=== PATIENT | female | born 2000 | race Caucasian/White ===

== ENCOUNTER 2019-01-01 14:32 | Inpatient (IN) ==
[2019-01-01] MEDS ORDERED: KETOROLAC TROMETHAMINE 15 MG/ML VIAL IV STA (15:50)
[2019-01-01] MEDS ORDERED: SODIUM CHLORIDE 0.9% 1000ML 1,000 ML IV ONE (15:50)
[2019-01-01] MEDS ORDERED: ONDANSETRON INJ 2 MG/ML 2 ML VIAL IV STA (15:50)
[2019-01-01 16:21] LABS: Appearance Urine Clear (Clear); Bacteria Urine Automated 2+ (Negative); Bilirubin Urine Negative (Negative); Blood Urine Negative (Negative); Color Urine Dark Yellow; Epithelial Cell Urine Auto >30 /lpf (0-5); Glucose Urine UA Negative (Negative); Ketones Urine 1+ (Negative); Leukocyte Esterase Urine Negative (Negative); Nitrite Urine Positive (Negative); Protein Urine Negative (Negative); RBC Urine Automated 0-4 /hpf (0-4); Specific Gravity Urine 1.035 (1.000-1.030); Urobilinogen Urine Negative (Negative)
[2019-01-01 16:28] LABS: BUN Creatinine Ratio 15.6 (10-20); Calcium 9.7 mg/dl (8.5-10.1); Creatinine Clr Calc Pharmacy 107.2 ml/min; Est GFR (African American) 130.9; Est GFR (Non-African American) 112.9; Potassium 3.6 mmol/L (3.5-5.1)
[2019-01-01 16:30] LABS: Basophils # (auto) 0.02 K/uL (0-0.2); Basophils % (auto) 0.2 %; Eosinophils # (auto) 0.26 K/uL (0-0.5); Eosinophils % (auto) 2.7 %; Hemoglobin 13.3 g/dL (12.0-16.0); Immature Granulocytes # (auto) 0.02 K/uL (0.00-0.02); Immature Granulocytes % (auto) 0.2 %; Lymphocytes # (auto) 1.51 K/uL (1.2-3.4); Lymphocytes % (auto) 15.8 %; Mean Corpuscular Hemoglobin 28.8 pg (25-34); Mean Corpuscular Hgb Conc 33.3 g/dL (32-36); Mean Corpuscular Volume 86.6 fL (80-100); Mean Platelet Volume 10.8 fL (7.4-10.4); Monocytes # (auto) 0.37 K/uL (0.11-0.59); Monocytes % (auto) 3.9 %; Neutrophils # (auto) 7.38 K/uL (1.4-6.5); Neutrophils % (auto) 77.2 %; Platelet Count 256 K/uL (130-400); RDW Coefficient of Variation 14.4 % (11.5-14.5); RDW Standard Deviation 45.1 fL (36.4-46.3); Red Blood Count 4.62 M/uL (4.2-5.4); White Blood Count 9.56 K/uL (4.8-10.8)
--- NOTE | 2019-01-01 16:30 | XRay Report ---
KUB HISTORY: lower abdominal pain COMPARISON: None. FINDINGS: Distended gas-filled colon to the level of the distal sigmoid colon which appears decompres sed. There is a small amount of gas within the rectum. The transverse colon measures up to 8.7 cm in diameter. No renal calculi. No ureteral calculi. No pneumoperitoneum or pneumatosis. IMPRESSION: Above findings concerning for a distal large bowel obstruction. A dedicated abdomen and pelvis CT is recommended for further evaluation. Electronically signed by: Tj Elise M.D. 01/01/2019 4:29 PM
[2019-01-01 16:31] LABS: Bilirubin,Total 0.8 mg/dl (0.2-1); Globulin 3.9 gm/dl (2.5-4.0); Total Protein 7.9 gm/dl (6.4-8.2)
[2019-01-01] MEDS ORDERED: IOVERSOL 100ml IV PRN (17:06)
--- NOTE | 2019-01-01 17:45 | CT Scan Report ---
ABDOMEN AND PELVIS CT WITH IV CONTRAST CT DOSE: 328.74 mGy.cm HISTORY: lower abd pain, large bowel obstruction on xray TECHNIQUE: Multiaxial CT images of the abdomen and pelvis were performed following the use of intrave nous contrast. A dose lowering technique was utilized adhering to the principles of ALARA. COMPARISON STUDY: KUB 01/01/2019. FINDINGS: Trace bilateral pleural effusions. No pneumoperitoneum. No pneumatosis. The liver, gallblad robin, spleen, adrenal glands, pancreas, and kidneys are unremarkable. No retroperitoneal lymphadenopat hy. Punctate focus of gas within the bladder may be due to recent catheterization. The bladder is dec ompressed. The uterus and bilateral adnexa are within normal limits. Normal appendix. Focal high-grad e stenosis at the splenic flexure of the colon within the left side the abdomen best seen on image 14 3. This appears to be secondary to an internal hernia. The distal colon from the hernia site is decom pressed. The colon proximal to the hernia site is distended and filled with fluid and gas measuring u p to 7.6 cm in diameter. Therefore, this is consistent with a large bowel obstruction. A small bowel is also decompressed. IMPRESSION: 1. There is an internal hernia within the left side the abdomen resulting in the transition point for the high-grade large bowel obstruction at the level of the splenic flexure of the colon. Immediate s urgical consultation recommended. 2. Trace bilateral pleural effusions. 3. Punctate focus of gas within the bladder suggesting recent catheterization. Electronically signed by: Tj Elise M.D. 01/01/2019 5:44 PM
--- NOTE | 2019-01-01 18:51 | Emergency Department Note ---
History of Present Illness General Chief complaint: Abdominal Pain Stated complaint: VOMITING,ABD PAIN Source: patient Mode of arrival: ambulatory Limitations: no limitations History of Present Illness Maximum Pain Intensity: 8 This patient is a 18-year-old female who presents to the emergency department accompanied by her grandmother for evaluation of abdominal pain. Patient reports that for the past 3 days, she has had intermittent lower abdominal pain. She states that the pain is in the middle of the lower abdomen and comes and goes. She states it has been worse with stress. She states that nothing has made the pain better. She has not taken any medication for her symptoms. She rates her overall discomfort a 6/10. She has had multiple episodes of vomiting which began yesterday morning. She has not been able to eat anything, but has been keeping liquids down. She denies any history of prior abdominal surgeries. She denies any urinary symptoms, changes in bowel movements or fevers. Her last menstrual period was 2 weeks ago. She is sexually active and denies any abnormal vaginal discharge or concern for STI. She has had some abdominal pain in the past, but states nothing that feels as severe as this. Home Medications Home Medications Medication Instructions Recorded Confirmed Type No Known Home Medications 10/18/18 01/01/19 History Allergies Allergy/AdvReac Type Severity Reaction Status Date / Time No Known Allergies Allergy Verified 01/01/19 20:42 Past Med/Surg History Medical History No significant past medical history Surgical History No significant past surgical history Social History Preferred Language: Georgian Communication Ability: Effective [employer] Supervisor Required: No Beliefs That Will Affect Care: None Current Living Situation: Family Current Living Situation Comment: Grandmother current occupational status: employed current occupation: works at [employer] Feels Safe at Home: Yes Safety Concerns: Feels Safe At This Time Smoking Status: Current some day smoker Tobacco Type: cigarettes ; Hx Alcohol Use: No Hx Substance Use: Yes substance use type: marijuana Review of Systems A total of 10 systems reviewed and were otherwise negative Physical Exam Vital Signs Vital Signs - 24 hr 01/01/19 14:51 01/01/19 16:32 01/01/19 18:00 Temperature 36.4 C L Temperature Source Oral Sepsis Recent Fever Within 48 Hours No Sepsis New/Unexplained Change in Mental Status No Sepsis Action Taken by Nursing No Action Required Pulse Rate 94 H Pulse Rate [Left Apical] 82 Pulse Rate [Right Finger] 88 Pulse Rhythm [Left Apical] Regular Pulse Rhythm [Right Finger] Regular Pulse Strength [Left Apical] Normal Pulse Strength [Right Finger] Normal Respiratory Rate 20 16 18 Respiratory Effort / Characteristics Non-Labored Spontaneous Non-Labored Spontaneous Respiratory Depth Normal Normal Respiratory Pattern Regular Regular Blood Pressure 107/68 Blood Pressure [Left Arm] 98/55 L 117/68 Blood Pressure Mean 81 Blood Pressure Mean [Left Arm] 69 84 Blood Pressure Position Sitting Blood Pressure Position [Left Arm] Lying Sitting Pulse Oximetry 98 98 100 Oxygen Delivery Method Room Air Room Air Room Air 01/01/19 20:30 Temperature Temperature Source Sepsis Recent Fever Within 48 Hours Sepsis New/Unexplained Change in Mental Status Sepsis Action Taken by Nursing Pulse Rate 78 Pulse Rate [Left Apical] Pulse Rate [Right Finger] Pulse Rhythm [Left Apical] Pulse Rhythm [Right Finger] Pulse Strength [Left Apical] Pulse Strength [Right Finger] Respiratory Rate 18 Respiratory Effort / Characteristics Respiratory Depth Respiratory Pattern Blood Pressure 100/63 Blood Pressure [Left Arm] Blood Pressure Mean Blood Pressure Mean [Left Arm] Blood Pressure Position Blood Pressure Position [Left Arm] Pulse Oximetry 99 Oxygen Delivery Method Room Air VITALS: Vitals are noted on the nurse's note and reviewed by myself. Vital signs stable. GENERAL: This is a 18-year-old female, in no acute distress, nondiaphoretic, well-developed well-nourished. SKIN: The skin was without rashes. EARS: External auditory canals clear, tympanic membranes pearly lin without erythema or effusion bilaterally. EYES: Pupils equal round and reactive to light and accommodation. MOUTH: Mucous membranes moist. Tonsils are not enlarged. Pharynx without erythema or exudate. NECK: Supple without nuchal rigidity. No lymphadenopathy. HEART: Regular rate and rhythm without murmurs gallops or rubs. LUNGS: Clear to auscultation bilaterally without wheezes, rales or rhonchi. ABDOMEN: Positive bowel sounds x 4. Soft, nondistended and nontender to palpation. EXTREMITIES: No peripheral edema. NEURO: Patient was alert and oriented to person place and time. Course Reevaluation(s) Reevaluation #1: Patient was reevaluated and CT findings discussed. Repeat abdominal exam was performed at this time. Patient has no tenderness at this time. Consultations Consultation #1: Dr. Trammell - general surgery Dr. Trammell will evaluate the patient for further treatment. Administered Medications Sodium Chloride (Nss 1000ml) 1,000 mls @ 150 mls/hr IV .Q6H40M DENICE Stop: 01/31/19 21:29 Last Admin: 01/01/19 21:42 Dose: 150 mls/hr Documented by: [id number] Ioversol (Optiray 320 100ml) 93 ml IV ONCE PRN PRN Reason: Interaction Checking Stop: 01/05/19 17:05 Last Admin: 01/01/19 17:06 Dose: 93 ml Documented by: [id number] Discontinued Medications Sodium Chloride (Nss 1000ml) 1,000 mls @ 999 mls/hr IV .Q1H1M ONE Stop: 01/01/19 16:50 Last Infusion: 01/01/19 17:09 Dose: 0 mls/hr Documented by: [id number] Admin: 01/01/19 16:09 Dose: 999 mls/hr Documented by: [id number] Ketorolac Tromethamine (Toradol) 15 mg IV NOW STA Stop: 01/01/19 15:51 Last Admin: 01/01/19 16:08 Dose: 15 mg Documented by: [id number] Ondansetron HCl (Zofran) 4 mg IV NOW STA Stop: 01/01/19 15:51 Last Admin: 01/01/19 16:08 Dose: 4 mg Documented by: [id number] Medical Decision Making Differential Diagnosis Differential diagnosis includes appendicitis, diverticulitis, bowel obstruction, inflammatory bowel disease, renal colic, mesenteric ischemia, aortic pathology, infection, genitourinary, UTI, perforated viscus, ovarian cyst, ovarian torsion, PID, among others. Home Medications Current Medication List: was personally reviewed by me Laboratory Data Attestation: I reviewed the patient's lab results. Result diagrams: 01/01/19 15:50 01/01/19 15:50 Lab Results 01/01/19 01/01/19 01/01/19 Range/Units 15:50 15:50 15:50 WBC 9.56 (4.8-10.8) K/uL RBC 4.62 (4.2-5.4) M/uL Hgb 13.3 (12.0-16.0) g/dL Hct 40.0 (37-47) % MCV 86.6 (80-100) fL MCH 28.8 (25-34) pg MCHC 33.3 (32-36) g/dL RDW Std Deviation 45.1 (36.4-46.3) fL RDW Coeff of Maxi 14.4 (11.5-14.5) % Plt Count 256 (130-400) K/uL MPV 10.8 H (7.4-10.4) fL Immature Gran % (Auto) 0.2 % Neut % (Auto) 77.2 % Lymph % (Auto) 15.8 % [place] % (Auto) 3.9 % Eos % (Auto) 2.7 % Baso % (Auto) 0.2 % Immature Gran # (Auto) 0.02 (0.00-0.02) K/uL Neut # (Auto) 7.38 H (1.4-6.5) K/uL Lymph # (Auto) 1.51 (1.2-3.4) K/uL [place] # (Auto) 0.37 (0.11-0.59) K/uL Eos # (Auto) 0.26 (0-0.5) K/uL Baso # (Auto) 0.02 (0-0.2) K/uL Sodium 140 (136-145) mmol/L Potassium 3.6 (3.5-5.1) mmol/L Chloride 107 (98-107) mmol/L Carbon Dioxide 22 (21-32) mmol/L Anion Gap 11.0 (3-11) BUN 12 (7-18) mg/dl Creatinine 0.76 (0.6-1.2) mg/dl Est Cr Clr Drug Dosing 107.2 ml/min Est GFR ( Amer) 130.9 Est GFR (Non-Af Amer) 112.9 BUN/Creatinine Ratio 15.6 (10-20) Glucose 88 (70-99) mg/dl Calcium 9.7 (8.5-10.1) mg/dl Total Bilirubin 0.8 (0.2-1) mg/dl AST 17 (15-37) U/L ALT 20 (12-78) U/L Alkaline Phosphatase 105 (45-117) U/L Total Protein 7.9 (6.4-8.2) gm/dl Albumin 4.0 (3.4-5.0) gm/dl Globulin 3.9 (2.5-4.0) gm/dl Albumin/Globulin Ratio 1.0 (0.9-2) Lipase 46 L Cancelled (73-393) U/L Urine Color Urine Appearance (Clear) Urine pH (4.5-7.5) Ur Specific [place] (1.000-1.030) Urine Protein (Negative) Urine Glucose (UA) (Negative) Urine Ketones (Negative) Urine Blood (Negative) Urine Nitrite (Negative) Urine Bilirubin (Negative) Urine Urobilinogen (Negative) Ur Leukocyte Esterase (Negative) Urine WBC (Auto) (0-5) /hpf Urine RBC (Auto) (0-4) /hpf U Hyaline Cast (Auto) (0-5) /lpf U Epithel Cells (Auto) (0-5) /lpf Urine Bacteria (Auto) (Negative) POC Ur Test (NEG) 01/01/19 01/01/19 Range/Units 16:05 16:05 WBC (4.8-10.8) K/uL RBC (4.2-5.4) M/uL Hgb (12.0-16.0) g/dL Hct (37-47) % MCV (80-100) fL MCH (25-34) pg MCHC (32-36) g/dL RDW Std Deviation (36.4-46.3) fL RDW Coeff of Maxi (11.5-14.5) % Plt Count (130-400) K/uL MPV (7.4-10.4) fL Immature Gran % (Auto) % Neut % (Auto) % Lymph % (Auto) % [place] % (Auto) % Eos % (Auto) % Baso % (Auto) % Immature Gran # (Auto) (0.00-0.02) K/uL Neut # (Auto) (1.4-6.5) K/uL Lymph # (Auto) (1.2-3.4) K/uL [place] # (Auto) (0.11-0.59) K/uL Eos # (Auto) (0-0.5) K/uL Baso # (Auto) (0-0.2) K/uL Sodium (136-145) mmol/L Potassium (3.5-5.1) mmol/L Chloride (98-107) mmol/L Carbon Dioxide (21-32) mmol/L Anion Gap (3-11) BUN (7-18) mg/dl Creatinine (0.6-1.2) mg/dl Est Cr Clr Drug Dosing ml/min Est GFR ( Amer) Est GFR (Non-Af Amer) BUN/Creatinine Ratio (10-20) Glucose (70-99) mg/dl Calcium (8.5-10.1) mg/dl Total Bilirubin (0.2-1) mg/dl AST (15-37) U/L ALT (12-78) U/L Alkaline Phosphatase (45-117) U/L Total Protein (6.4-8.2) gm/dl Albumin (3.4-5.0) gm/dl Globulin (2.5-4.0) gm/dl Albumin/Globulin Ratio (0.9-2) Lipase (73-393) U/L Urine Color Dark Yellow Urine Appearance Clear (Clear) Urine pH 5.0 (4.5-7.5) Ur Specific [place] 1.035 H (1.000-1.030) Urine Protein Negative (Negative) Urine Glucose (UA) Negative (Negative) Urine Ketones 1+ H (Negative) Urine Blood Negative (Negative) Urine Nitrite Positive A (Negative) Urine Bilirubin Negative (Negative) Urine Urobilinogen Negative (Negative) Ur Leukocyte Esterase Negative (Negative) Urine WBC (Auto) 1-5 (0-5) /hpf Urine RBC (Auto) 0-4 (0-4) /hpf U Hyaline Cast (Auto) 1-5 (0-5) /lpf U Epithel Cells (Auto) >30 H (0-5) /lpf Urine Bacteria (Auto) 2+ H (Negative) POC Ur Test NEG (NEG) Imaging Data Attestation: I personally reviewed and interpreted this imaging study as follows: Radiologist's Impression: KUB FINDINGS: Distended gas-filled colon to the level of the distal sigmoid colon which appears decompressed. There is a small amount of gas within the rectum. The transverse colon measures up to 8.7 cm in diameter. No renal calculi. No ureteral calculi. No pneumoperitoneum or pneumatosis. IMPRESSION: Above findings concerning for a distal large bowel obstruction. A dedicated abdomen and pelvis CT is recommended for further evaluation. ABDOMEN AND PELVIS CT WITH IV CONTRAST FINDINGS: Trace bilateral pleural effusions. No pneumoperitoneum. No pneumatosis. The liver, gallbladder, spleen, adrenal glands, pancreas, and kidneys are unremarkable. No retroperitoneal lymphadenopathy. Punctate focus of gas within the bladder may be due to recent catheterization. The bladder is decompressed. The uterus and bilateral adnexa are within normal limits. Normal appendix. Focal high-grade stenosis at the splenic flexure of the colon within the left side the abdomen best seen on image 143. This appears to be secondary to an internal hernia. The distal colon from the hernia site is decompressed. The colon proximal to the hernia site is distended and filled with fluid and gas measuring up to 7.6 cm in diameter. Therefore, this is consistent with a large bowel obstruction. A small bowel is also decompressed. IMPRESSION: 1. There is an internal hernia within the left side the abdomen resulting in the transition point for the high-grade large bowel obstruction at the level of the splenic flexure of the colon. Immediate surgical consultation recommended. 2. Trace bilateral pleural effusions. 3. Punctate focus of gas within the bladder suggesting recent catheterization. Blood Pressure Blood Pressure Findings: Normal blood pressure Blood Pressure Disposition: did not require urgent referral MDM Narrative The patient is a 18-year-old female who presents today complaining of abdominal pain and vomiting for the past 2 to 3 days. Labs revealed no leukocytosis, anemia or concerning electrolyte abnormalities. Urinalysis suggestive of possible infection, will be sent for culture. Urine test was negative. Patient has no tenderness on exam and does not appear to be significantly uncomfortable. For this reason, I initially performed a KUB which showed significant dilation of the colon. CT of the abdomen and pelvis was then performed which shows evidence of an internal hernia with resultant high-grade large bowel obstruction. Again, patient has minimal symptoms in the emergency department and no tenderness on exam. I did speak with the general surgeon, who evaluated the patient and will admit her for further evaluation and care. Patient was agreeable with this plan of care as well. Impression & Plan Large bowel obstruction, Internal hernia, Vomiting, Suprapubic abdominal pain Discharge Plan Visit Data *Final* Discharge Date/Time: 01/01/19 20:30 Chief Complaint: Abdominal Pain Stated Complaint: VOMITING,ABD PAIN ED Provider: Yifan Vasquez ED Midlevel Provider: Krystal Goetz Discharge Problem: Large bowel obstruction, Internal hernia, Vomiting, Suprapubic abdominal pain Patient Disposition: Admitted As Inpatient Discharge Instructions Interventions: ED Discharge Assessment Last Done: 01/01/19 20:30 Discharge Problem: Vomiting Qualifiers: Vomiting type: unspecified Vomiting Intractability: non-intractable Nausea presence: with nausea Qualified Code(s): R11.2 - Nausea with vomiting, unspecified
--- NOTE | 2019-01-01 20:53 | History & Physical Report ---
Date of Service January 01, 2019 Assessment & Plan (1) Abdominal pain: This patient had abdominal pain with nausea. That seemed to resolve however she has a finding on CAT scan of a possible internal hernia with proximally dilated colon and distally decompressed colon with the transition poi nt near the splenic flexure with evidence of an internal hernia. However at the present time she is completely asymptomatic. The etiology of this is unclear. She is never had previous surgery. She has no symptoms that would suggest neoplasm. I discussed this with radiology and were going to plan for a contrast enema tomorrow. I would prefer using Gastrografin considering her history of constipation. We will await that result. We will keep her n.p.o. She will be placed on IV fluids and will be given analgesics and antiemetics as needed. History of Present Illness Chief Complaint: Abdominal pain nausea and vomiting Primary Care Provider: Deb Dolan MD This is a 18-year-old female presented to the emergency room with a complaint of abdominal pain that was centered mostly in the suprapubic area. The pain was crampy in nature. There were some sharp component. She had some nausea and had a few episodes of vomiting as well. She had not been able to eat much over the last 2 days. Since coming to the emergency room she was given some analgesic and anti-emetics and her pain and nausea and vomiting have resolved. She has not had any fever or chills. Her bowels she stated had been moving although a relative accompanied her and said that she for many years has had constipation. She has not had any melena or hematochezia. She has been passing flatus. She has no dysuria or hematuria. She had discomfort in the right side back in September. She was evaluated and underwent an ultrasound that demonstrated no evidence of acute appendicitis. Her discomfort resolved after about 3 to 4 days and did not return until today. Allergies Allergy/AdvReac Type Severity Reaction Status Date / Time No Known Allergies Allergy Verified 01/01/19 20:42 Home Medications Home Medications Medication Instructions Recorded Confirmed Type No Known Home Medications 10/18/18 01/01/19 History Past Med/Surg History Medical History No significant past medical history Surgical History No significant past surgical history Social History Current Living Situation: Family Current Living Situation Comment: lives with grandmother current occupational status: employed current occupation: works at [employer] Feels Safe at Home: Yes Smoking Status: Never smoker Review of Systems Review of Systems: All systems reviewed & are unremarkable except as noted in HPI & below Physical Exam Constitutional: no acute distress Neck: trachea midline Respiratory: normal respiratory effort, lungs clear to auscultation Cardiovascular: Rate/Rhythm: regular rate and regular rhythm Gastrointestinal (Abdomen): Inspection/Auscultation: normal bowel sounds; abdomen not distended Percussion/Palpation: abdomen soft; abdomen nontender Skin: no rashes, warm and dry Lymphatic: no cervical lymphadenopathy Results & Data Vital Signs (Past 12 Hours) Vital Signs Temp Pulse Pulse Pulse Resp BP BP 01/01/19 20:30 78 18 100/63 01/01/19 18:00 82 18 117/68 01/01/19 16:32 88 16 98/55 L 01/01/19 14:51 36.4 C L 94 H 20 107/68 Pulse Ox 01/01/19 20:30 99 01/01/19 18:00 100 01/01/19 16:32 98 01/01/19 14:51 98 Laboratory Results 01/01/19 01/01/19 01/01/19 Range/Units 16:05 16:05 15:50 WBC (4.8-10.8) K/uL RBC (4.2-5.4) M/uL Hgb (12.0-16.0) g/dL Hct (37-47) % MCV (80-100) fL MCH (25-34) pg MCHC (32-36) g/dL RDW Std Deviation (36.4-46.3) fL RDW Coeff of Maxi (11.5-14.5) % Plt Count (130-400) K/uL MPV (7.4-10.4) fL Immature Gran % (Auto) % Neut % (Auto) % Lymph % (Auto) % [place] % (Auto) % Eos % (Auto) % Baso % (Auto) % Immature Gran # (Auto) (0.00-0.02) K/uL Neut # (Auto) (1.4-6.5) K/uL Lymph # (Auto) (1.2-3.4) K/uL [place] # (Auto) (0.11-0.59) K/uL Eos # (Auto) (0-0.5) K/uL Baso # (Auto) (0-0.2) K/uL Sodium (136-145) mmol/L Potassium (3.5-5.1) mmol/L Chloride (98-107) mmol/L Carbon Dioxide (21-32) mmol/L Anion Gap (3-11) BUN (7-18) mg/dl Creatinine (0.6-1.2) mg/dl Est Cr Clr Drug Dosing ml/min Est GFR ( Amer) Est GFR (Non-Af Amer) BUN/Creatinine Ratio (10-20) Glucose (70-99) mg/dl Calcium (8.5-10.1) mg/dl Total Bilirubin (0.2-1) mg/dl AST (15-37) U/L ALT (12-78) U/L Alkaline Phosphatase (45-117) U/L Total Protein (6.4-8.2) gm/dl Albumin (3.4-5.0) gm/dl Globulin (2.5-4.0) gm/dl Albumin/Globulin Ratio (0.9-2) Lipase Cancelled (73-393) U/L Urine Color Dark Yellow Urine Appearance Clear (Clear) Urine pH 5.0 (4.5-7.5) Ur Specific [place] 1.035 H (1.000-1.030) Urine Protein Negative (Negative) Urine Glucose (UA) Negative (Negative) Urine Ketones 1+ H (Negative) Urine Blood Negative (Negative) Urine Nitrite Positive A (Negative) Urine Bilirubin Negative (Negative) Urine Urobilinogen Negative (Negative) Ur Leukocyte Esterase Negative (Negative) Urine WBC (Auto) 1-5 (0-5) /hpf Urine RBC (Auto) 0-4 (0-4) /hpf U Hyaline Cast (Auto) 1-5 (0-5) /lpf U Epithel Cells (Auto) >30 H (0-5) /lpf Urine Bacteria (Auto) 2+ H (Negative) POC Ur Test NEG (NEG) 10/07/19 10/07/19 Range/Units 15:50 15:50 WBC 9.56 (4.8-10.8) K/uL RBC 4.62 (4.2-5.4) M/uL Hgb 13.3 (12.0-16.0) g/dL Hct 40.0 (37-47) % MCV 86.6 (80-100) fL MCH 28.8 (25-34) pg MCHC 33.3 (32-36) g/dL RDW Std Deviation 45.1 (36.4-46.3) fL RDW Coeff of Maxi 14.4 (11.5-14.5) % Plt Count 256 (130-400) K/uL MPV 10.8 H (7.4-10.4) fL Immature Gran % (Auto) 0.2 % Neut % (Auto) 77.2 % Lymph % (Auto) 15.8 % [place] % (Auto) 3.9 % Eos % (Auto) 2.7 % Baso % (Auto) 0.2 % Immature Gran # (Auto) 0.02 (0.00-0.02) K/uL Neut # (Auto) 7.38 H (1.4-6.5) K/uL Lymph # (Auto) 1.51 (1.2-3.4) K/uL [place] # (Auto) 0.37 (0.11-0.59) K/uL Eos # (Auto) 0.26 (0-0.5) K/uL Baso # (Auto) 0.02 (0-0.2) K/uL Sodium 140 (136-145) mmol/L Potassium 3.6 (3.5-5.1) mmol/L Chloride 107 (98-107) mmol/L Carbon Dioxide 22 (21-32) mmol/L Anion Gap 11.0 (3-11) BUN 12 (7-18) mg/dl Creatinine 0.76 (0.6-1.2) mg/dl Est Cr Clr Drug Dosing 107.2 ml/min Est GFR ( Amer) 130.9 Est GFR (Non-Af Amer) 112.9 BUN/Creatinine Ratio 15.6 (10-20) Glucose 88 (70-99) mg/dl Calcium 9.7 (8.5-10.1) mg/dl Total Bilirubin 0.8 (0.2-1) mg/dl AST 17 (15-37) U/L ALT 20 (12-78) U/L Alkaline Phosphatase 105 (45-117) U/L Total Protein 7.9 (6.4-8.2) gm/dl Albumin 4.0 (3.4-5.0) gm/dl Globulin 3.9 (2.5-4.0) gm/dl Albumin/Globulin Ratio 1.0 (0.9-2) Lipase 46 L (73-393) U/L Urine Color Urine Appearance (Clear) Urine pH (4.5-7.5) Ur Specific [place] (1.000-1.030) Urine Protein (Negative) Urine Glucose (UA) (Negative) Urine Ketones (Negative) Urine Blood (Negative) Urine Nitrite (Negative) Urine Bilirubin (Negative) Urine Urobilinogen (Negative) Ur Leukocyte Esterase (Negative) Urine WBC (Auto) (0-5) /hpf Urine RBC (Auto) (0-4) /hpf U Hyaline Cast (Auto) (0-5) /lpf U Epithel Cells (Auto) (0-5) /lpf Urine Bacteria (Auto) (Negative) POC Ur Test (NEG) Diagnostic Findings ABDOMEN AND PELVIS CT WITH IV CONTRAST CT DOSE: 328.74 mGy.cm HISTORY: lower abd pain, large bowel obstruction on xray TECHNIQUE: Multiaxial CT images of the abdomen and pelvis were performed following the use of intravenous contrast. A dose lowering technique was utilized adhering to the principles of ALARA. COMPARISON STUDY: [facility] 01/01/2019. FINDINGS: Trace bilateral pleural effusions. No pneumoperitoneum. No pneumatosis. The liver, gallbladder, spleen, adrenal glands, pancreas, and kidneys are unremarkable. No retroperitoneal lymphadenopathy. Punctate focus of gas within the bladder may be due to recent catheterization. The bladder is decompressed. The uterus and bilateral adnexa are within normal limits. Normal appendix. Focal high-grade stenosis at the splenic flexure of the colon within the left side the abdomen best seen on image 143. This appears to be secondary to an internal hernia. The distal colon from the hernia site is decompressed. The colon proximal to the hernia site is distended and filled with fluid and gas measuring up to 7.6 cm in diameter. Therefore, this is consistent with a large bowel obstruction. A small bowel is also decompressed. IMPRESSION: 1. There is an internal hernia within the left side the abdomen resulting in the transition point for the high-grade large bowel obstruction at the level of the splenic flexure of the colon. Immediate surgical consultation recommended. 2. Trace bilateral pleural effusions. 3. Punctate focus of gas within the bladder suggesting recent catheterization.
[2019-01-01] MEDS: SODIUM CHLORIDE 0.9% 1000ML 1,000 ML IV SCH (21:42)
[2019-01-02] MEDS: SODIUM CHLORIDE 0.9% 1000ML 1,000 ML IV SCH ×3 (04:06→17:42)
--- NOTE | 2019-01-02 09:52 | Surgery Progress Note ---
Date of Service January 02, 2019 Assessment & Plan (1) Abdominal pain: This patient presented with abdominal pain with nausea. That seemed to resolve however she has a finding on CAT scan of a possible internal hernia with proximally dilated colon and distally decompressed colon with the transition point near the splenic flexure with evidence of an internal hernia. However she is completely asymptomatic. The etiology of this is unclear. She is never had previous surgery. She has no symptoms that would suggest neoplasm. Plan for a contrast enema today for further evaluation. We will await that result. keep her n.p.o. Continue IV fluids continue pain medication and IV Zofran prn pain and nausea respectively encourage ambulation Dr. Trammell has seen and examined pt, agrees with above. Supervising Physician Co-Signing Physician Notes The patient has minimal discomfort and minimal tenderness today. We initially plan for Gastrografin enema to evaluate the colon especially the splenic flexu re. The patient has refused that procedure. As a second alternative we will consider CT scan of the abdomen and pelvis with oral and IV contrast. Subjective not having much pain right now no n/v not passing any flatus or bowel movement Physical Exam Constitutional: WD/WN, vitals as above no acute distress Gastrointestinal (Abdomen): Inspection/Auscultation: abdomen normal to inspection; abdomen not distended Percussion/Palpation: abdomen soft; abdomen nontender, no guarding and abdomen not rigid Skin: no rashes, warm and dry Psychiatric: Orientation: alert and oriented x 3 Affect: + flat affect Results & Data Vital Signs (Past 12 Hours) Vital Signs Temp Pulse Resp BP Pulse Ox 01/02/19 07:15 36.6 C 81 16 101/63 99 01/01/19 23:34 37.0 C 77 18 100/60 97 Laboratory Results 01/01/19 01/01/19 01/01/19 Range/Units 16:05 16:05 15:50 WBC (4.8-10.8) K/uL RBC (4.2-5.4) M/uL Hgb (12.0-16.0) g/dL Hct (37-47) % MCV (80-100) fL MCH (25-34) pg MCHC (32-36) g/dL RDW Std Deviation (36.4-46.3) fL RDW Coeff of Maxi (11.5-14.5) % Plt Count (130-400) K/uL MPV (7.4-10.4) fL Immature Gran % (Auto) % Neut % (Auto) % Lymph % (Auto) % [place] % (Auto) % Eos % (Auto) % Baso % (Auto) % Immature Gran # (Auto) (0.00-0.02) K/uL Neut # (Auto) (1.4-6.5) K/uL Lymph # (Auto) (1.2-3.4) K/uL [place] # (Auto) (0.11-0.59) K/uL Eos # (Auto) (0-0.5) K/uL Baso # (Auto) (0-0.2) K/uL Sodium (136-145) mmol/L Potassium (3.5-5.1) mmol/L Chloride (98-107) mmol/L Carbon Dioxide (21-32) mmol/L Anion Gap (3-11) BUN (7-18) mg/dl Creatinine (0.6-1.2) mg/dl Est Cr Clr Drug Dosing ml/min Est GFR ( Amer) Est GFR (Non-Af Amer) BUN/Creatinine Ratio (10-20) Glucose (70-99) mg/dl Calcium (8.5-10.1) mg/dl Total Bilirubin (0.2-1) mg/dl AST (15-37) U/L ALT (12-78) U/L Alkaline Phosphatase (45-117) U/L Total Protein (6.4-8.2) gm/dl Albumin (3.4-5.0) gm/dl Globulin (2.5-4.0) gm/dl Albumin/Globulin Ratio (0.9-2) Lipase Cancelled (73-393) U/L Urine Color Dark Yellow Urine Appearance Clear (Clear) Urine pH 5.0 (4.5-7.5) Ur Specific [place] 1.035 H (1.000-1.030) Urine Protein Negative (Negative) Urine Glucose (UA) Negative (Negative) Urine Ketones 1+ H (Negative) Urine Blood Negative (Negative) Urine Nitrite Positive A (Negative) Urine Bilirubin Negative (Negative) Urine Urobilinogen Negative (Negative) Ur Leukocyte Esterase Negative (Negative) Urine WBC (Auto) 1-5 (0-5) /hpf Urine RBC (Auto) 0-4 (0-4) /hpf U Hyaline Cast (Auto) 1-5 (0-5) /lpf U Epithel Cells (Auto) >30 H (0-5) /lpf Urine Bacteria (Auto) 2+ H (Negative) POC Ur Test NEG (NEG) 01/01/19 01/01/19 Range/Units 15:50 15:50 WBC 9.56 (4.8-10.8) K/uL RBC 4.62 (4.2-5.4) M/uL Hgb 13.3 (12.0-16.0) g/dL Hct 40.0 (37-47) % MCV 86.6 (80-100) fL MCH 28.8 (25-34) pg MCHC 33.3 (32-36) g/dL RDW Std Deviation 45.1 (36.4-46.3) fL RDW Coeff of Maxi 14.4 (11.5-14.5) % Plt Count 256 (130-400) K/uL MPV 10.8 H (7.4-10.4) fL Immature Gran % (Auto) 0.2 % Neut % (Auto) 77.2 % Lymph % (Auto) 15.8 % [place] % (Auto) 3.9 % Eos % (Auto) 2.7 % Baso % (Auto) 0.2 % Immature Gran # (Auto) 0.02 (0.00-0.02) K/uL Neut # (Auto) 7.38 H (1.4-6.5) K/uL Lymph # (Auto) 1.51 (1.2-3.4) K/uL [place] # (Auto) 0.37 (0.11-0.59) K/uL Eos # (Auto) 0.26 (0-0.5) K/uL Baso # (Auto) 0.02 (0-0.2) K/uL Sodium 140 (136-145) mmol/L Potassium 3.6 (3.5-5.1) mmol/L Chloride 107 (98-107) mmol/L Carbon Dioxide 22 (21-32) mmol/L Anion Gap 11.0 (3-11) BUN 12 (7-18) mg/dl Creatinine 0.76 (0.6-1.2) mg/dl Est Cr Clr Drug Dosing 107.2 ml/min Est GFR ( Amer) 130.9 Est GFR (Non-Af Amer) 112.9 BUN/Creatinine Ratio 15.6 (10-20) Glucose 88 (70-99) mg/dl Calcium 9.7 (8.5-10.1) mg/dl Total Bilirubin 0.8 (0.2-1) mg/dl AST 17 (15-37) U/L ALT 20 (12-78) U/L Alkaline Phosphatase 105 (45-117) U/L Total Protein 7.9 (6.4-8.2) gm/dl Albumin 4.0 (3.4-5.0) gm/dl Globulin 3.9 (2.5-4.0) gm/dl Albumin/Globulin Ratio 1.0 (0.9-2) Lipase 46 L (73-393) U/L Urine Color Urine Appearance (Clear) Urine pH (4.5-7.5) Ur Specific [place] (1.000-1.030) Urine Protein (Negative) Urine Glucose (UA) (Negative) Urine Ketones (Negative) Urine Blood (Negative) Urine Nitrite (Negative) Urine Bilirubin (Negative) Urine Urobilinogen (Negative) Ur Leukocyte Esterase (Negative) Urine WBC (Auto) (0-5) /hpf Urine RBC (Auto) (0-4) /hpf U Hyaline Cast (Auto) (0-5) /lpf U Epithel Cells (Auto) (0-5) /lpf Urine Bacteria (Auto) (Negative) POC Ur Test (NEG)
--- NOTE | 2019-01-02 15:44 | Fluoroscopy Report ---
KUB CLINICAL HISTORY: Large bowel obstruction. Industrial Hygienist radiographs for attempted barium enema. FINDINGS: 2 AP supine abdominal radiographs are compared to abdominal radiographs and abdominal CT da merari 01/01/2019. These were acquired in preparation for a barium enema procedure. The patient declined the barium enema. The radiographs show marked persistent gaseous distention of the colon. This is unc hanged from yesterday. The colon measures up to 10 cm in diameter. The small bowel loops are normal i n caliber. No evidence of intraperitoneal free air is seen. There are no abnormal abdominal calcifica tions. The bony structures appear intact. IMPRESSION: 1. Findings are consistent with persistent distal colonic obstruction. 2. The patient declined the barium enema procedure. Electronically signed by: Yifan Guzman M.D. 01/02/2019 3:42 PM
[2019-01-02] MEDS ORDERED: IOVERSOL 100ml IV PRN (15:58)
--- NOTE | 2019-01-02 16:44 | CT Scan Report ---
CT abd pelvis oral and IV con CLINICAL HISTORY: 18 years-old Female presenting with large bowel obstruction, eval with oral contras t. TECHNIQUE: Multidetector CT of the abdomen and pelvis was performed after the administration of oral and intravenous contrast. IV contrast: 90 mL of Optiray 320. One or more dose lowering techniques wer e used consistent with the principles of ALARA (as low as reasonably achievable), including automatic exposure control, mA or kV adjustment to individual patient size, and/or use of iterative reconstruc tion. COMPARISON: 01/01/2019. CT DOSE (mGy.cm): The estimated cumulative dose is 667.95 mGycm. FINDINGS: Material Control Supervisor topogram: Marked gaseous distention of large bowel. Lung bases: Normal heart size. Trace bilateral pleural effusions. Minimal dependent changes likely at electasis. Liver: Congenital hypoplasia of the medial segments of the left hepatic lobe. No focal lesion. Patent hepatic vasculature. Biliary: No intrahepatic or extrahepatic biliary ductal dilatation. Normal gallbladder. Pancreas: Normal. Spleen: Normal. Adrenal glands: Normal. Kidneys and ureters: Normal. No hydronephrosis. Bladder: Incompletely evaluated secondary to underdistention. Pelvic organs: Uterus and ovaries normal. Bowel: Mild circumferential wall thickening of the rectum. Persistent large bowel obstruction with a transition point at the splenic flexure/proximal descending colon (series 3 image 179). There is stre tched mesentery crossing this region with suspected internal hernia. Surrounding mild fat infiltratio n is stable to slightly increased from prior. No wall thickening or pneumatosis. Small bowel is nondi lated. Peritoneal cavity: Trace free fluid in the pelvis. No free intraperitoneal gas. No extraluminal gas. Lymph nodes: Few prominent lymph nodes in the mesentery associated with the descending colon. No path ologically enlarged lymph nodes in abdomen or pelvis. Vasculature: Aorta and IVC patent and normal in caliber. Abdominal wall: Normal. Musculoskeletal: Normal. IMPRESSION: 1. Persistence large bowel obstruction with the transition point at the splenic flexure/proximal mona cending colon. This is likely due to the presence of an internal hernia. Urgent surgical consultation is again warranted for consideration for intervention to reduce the internal hernia. 2. No convincing evidence of bowel ischemia at this time. The report will be called/faxed according to standard departmental protocol for a critical finding. Electronically signed by: Yakov Simon M.D. 01/02/2019 4:42 PM
[2019-01-02] MEDS: ONDANSETRON INJ 2 MG/ML 2 ML VIAL IV PRN (17:44)
[2019-01-02 17:57] LABS: Basophils # (auto) 0.02 K/uL (0-0.2); Basophils % (auto) 0.3 %; Eosinophils # (auto) 0.19 K/uL (0-0.5); Eosinophils % (auto) 2.9 %; Hematocrit (blood only) 33.4 % (37-47); Immature Granulocytes # (auto) 0.01 K/uL (0.00-0.02); Immature Granulocytes % (auto) 0.2 %; Lymphocytes # (auto) 1.21 K/uL (1.2-3.4); Lymphocytes % (auto) 18.3 %; Mean Corpuscular Hemoglobin 28.8 pg (25-34); Mean Corpuscular Hgb Conc 32.9 g/dL (32-36); Mean Corpuscular Volume 87.4 fL (80-100); Mean Platelet Volume 10.3 fL (7.4-10.4); Monocytes # (auto) 0.37 K/uL (0.11-0.59); Monocytes % (auto) 5.6 %; Neutrophils # (auto) 4.82 K/uL (1.4-6.5); Neutrophils % (auto) 72.7 %; Platelet Count 169 K/uL (130-400); RDW Coefficient of Variation 14.4 % (11.5-14.5); RDW Standard Deviation 45.7 fL (36.4-46.3); Red Blood Count 3.82 M/uL (4.2-5.4); White Blood Count 6.62 K/uL (4.8-10.8)
[2019-01-03] MEDS: SODIUM CHLORIDE 0.9% 1000ML 1,000 ML IV SCH ×3 (00:25→13:23)
--- NOTE | 2019-01-03 08:15 | Surgery Progress Note ---
Date of Service January 03, 2019 Assessment & Plan (1) Large bowel obstruction: This patient has persistent findings consistent with partial colon obstruction and possible internal hernia. There is no evidence of peritonitis. I recommended surgical exploration with reduction of the internal hernia. She initially had been refusing but she is now agreeable. I explained to her the procedures in some of the possible complications and answered her questions and she has signed a consent form. Subjective This patient has discomfort intermittently but presently does not. She has had no vomiting. She has no fever or chills. Physical Exam Gastrointestinal (Abdomen): Inspection/Auscultation: + abdomen distended (Mild) and normal bowel sounds Percussion/Palpation: abdomen soft; abdomen nontender Results & Data Vital Signs (Past 12 Hours) Vital Signs Temp Pulse Resp BP Pulse Ox 01/03/19 07:13 37.0 C 85 18 104/65 97 01/02/19 23:35 36.7 C 75 16 104/[address] abd pelvis oral and IV con CLINICAL HISTORY: 18 years-old Female presenting with large bowel obstruction, eval with oral contrast. TECHNIQUE: Multidetector CT of the abdomen and pelvis was performed after the administration of oral and intravenous contrast. IV contrast: 90 mL of Optiray 320. One or more dose lowering techniques were used consistent with the principles of ALARA (as low as reasonably achievable), including automatic exposure control, mA or kV adjustment to individual patient size, and/or use of iterative reconstruction. COMPARISON: 01/01/2019. CT DOSE (mGy.cm): The estimated cumulative dose is 667.95 mGycm. FINDINGS: Employment Adjudicator topogram: Marked gaseous distention of large bowel. Lung bases: Normal heart size. Trace bilateral pleural effusions. Minimal dependent changes likely atelectasis. Liver: Congenital hypoplasia of the medial segments of the left hepatic lobe. No focal lesion. Patent hepatic vasculature. Biliary: No intrahepatic or extrahepatic biliary ductal dilatation. Normal gallbladder. Pancreas: Normal. Spleen: Normal. Adrenal glands: Normal. Kidneys and ureters: Normal. No hydronephrosis. Bladder: Incompletely evaluated secondary to underdistention. Pelvic organs: Uterus and ovaries normal. Bowel: Mild circumferential wall thickening of the rectum. Persistent large bowel obstruction with a transition point at the splenic flexure/proximal descending colon (series 3 image 179). There is stretched mesentery crossing this region with suspected internal hernia. Surrounding mild fat infiltration is stable to slightly increased from prior. No wall thickening or pneumatosis. Small bowel is nondilated. Peritoneal cavity: Trace free fluid in the pelvis. No free intraperitoneal gas. No extraluminal gas. Lymph nodes: Few prominent lymph nodes in the mesentery associated with the descending colon. No pathologically enlarged lymph nodes in abdomen or pelvis. Vasculature: Aorta and IVC patent and normal in caliber. Abdominal wall: Normal. Musculoskeletal: Normal. IMPRESSION: 1. Persistence large bowel obstruction with the transition point at the splenic flexure/proximal descending colon. This is likely due to the presence of an internal hernia. Urgent surgical consultation is again warranted for consideration for intervention to reduce the internal hernia. 2. No convincing evidence of bowel ischemia at this time.
[2019-01-03 08:43] LABS: Hematocrit (blood only) 34.1 % (37-47); Hemoglobin 11.5 g/dL (12.0-16.0); Mean Corpuscular Hemoglobin 28.9 pg (25-34); Mean Corpuscular Hgb Conc 33.7 g/dL (32-36); Mean Corpuscular Volume 85.7 fL (80-100); Mean Platelet Volume 10.3 fL (7.4-10.4); Platelet Count 164 K/uL (130-400); RDW Standard Deviation 43.7 fL (36.4-46.3); Red Blood Count 3.98 M/uL (4.2-5.4); White Blood Count 4.94 K/uL (4.8-10.8)
[2019-01-03] MEDS: CIPROFLOXACIN 400 MG/200 ML BAG IV SCH ×2 (08:43→20:42)
--- NOTE | 2019-01-03 09:01 | XRay Report ---
KUB HISTORY: Acute generalized abdominal pain with large bowel obstruction CT abdomen and pelvis 01/03/20 19 COMPARISON: CT abdomen and pelvis studies 01/01/2019 and 01/02/2019 FINDINGS: Persistent dilated air-filled loops of large bowel redemonstrated with loops measuring up t o 9.8 cm transversely, generally unchanged from comparison. No definite small bowel dilation identifi ed. There is no organomegaly. No renal calculi. No ureteral calculi. No pneumoperitoneum or pneumato sis. No fracture. IMPRESSION: Persistent air-filled dilated loops of large bowel suggestive on ongoing large bowel obstruction. No pneumatosis or pneumoperitoneum identified. Electronically signed by: Augusto Waterman M.D. 01/03/2019 8:59 AM
[2019-01-03 09:13] LABS: BUN Creatinine Ratio 15.5 (10-20); Basophils # (auto) 0.01 K/uL (0-0.2); Basophils % (auto) 0.2 %; Blood Urea Nitrogen 7 mg/dl (7-18); Calcium 8.2 mg/dl (8.5-10.1); Carbon Dioxide 17 mmol/L (21-32); Chloride 110 mmol/L (98-107); Creatinine Clr Calc Pharmacy 182.2 ml/min; Eosinophils # (auto) 0.15 K/uL (0-0.5); Est GFR (African American) > 150.0; Est GFR (Non-African American) 144.2; Glucose 90 mg/dl (70-99); Lymphocytes # (auto) 1.05 K/uL (1.2-3.4); Lymphocytes % (auto) 21.3 %; Monocytes % (auto) 12.1 %; Neutrophils # (auto) 3.13 K/uL (1.4-6.5); Neutrophils % (auto) 63.4 %; Potassium 3.9 mmol/L (3.5-5.1); Sodium 137 mmol/L (136-145)
[2019-01-03] MEDS ORDERED: MoRPHine SULFATE 4 MG/ML 1 ML CARP\\VIAL IV PRN (09:27)
[2019-01-03] MEDS ORDERED: MoRPHine SULFATE 2 MG/ML CARP IV PRN ×2 (09:27)
[2019-01-03] MEDS ORDERED: MIDAZOLAM HCL 1 MG/ML 2ML VIAL ONE (15:45)
[2019-01-03] MEDS ORDERED: fentaNYL citrate 100 MCG/2 ML VIAL ONE ×2 (15:45→19:47)
--- NOTE | 2019-01-03 16:08 | Anesthesiology Consultation ---
Date of Service January 03, 2019 Assessment & Plan Chart Review Chart Review: Acceptable Risk for Surgery and Patient NOT seen in Pre Admission Testing Consults Requested none ASA ASA2 Proposed Anesthesia Anesthesia Type: General Risk / Benefits Reviewed With: PT / POA / Parent / Guardian, Accepts Plan and Informed Consent Obtained History Surgery Operation Date: 01/03/19 14:00 Proposed Procedures p Exploratory Laparotomy, Possible Bowel Resection - Xavier Trammell MD Height/Weight Height: 5 ft 2 in Weight: 69.5 kg Allergies Allergy/AdvReac Type Severity Reaction Status Date / Time No Known Allergies Allergy Verified 01/01/19 20:42 Medications Home Medications Medication Instructions Recorded Confirmed Last Taken No Known Home Medications 10/18/18 01/01/19 Unknown Active Medications Generic Name Dose Route Start Last Admin Trade Name Freq PRN Reason Stop Dose Admin Sodium Chloride 1,000 mls @ 150 mls/hr 01/01/19 21:30 01/03/19 13:23 Nss 1000ml IV 01/31/19 21:29 150 mls/hr .[id number] DENICE Administration Ciprofloxacin 400 mg in 200 mls @ 100 mls/hr 01/03/19 08:30 01/03/19 10:43 Cipro IV 01/08/19 08:29 Infused Q12H DENICE Infusion Protocol Ioversol 93 ml 01/01/19 17:06 01/01/19 17:06 Optiray 320 100ml IV 01/05/19 17:05 93 ml ONCE PRN Administration Interaction Checking Ioversol 94 ml 01/02/19 15:58 01/02/19 15:59 Optiray 320 100ml IV 01/06/19 15:57 94 ml ONCE PRN Administration Interaction Checking Morphine Sulfate 2 mg 01/03/19 09:27 01/03/19 09:40 Morphine Sulfate IV 01/17/19 09:26 2 mg Q3H PRN Administration Moderate Pain Ondansetron HCl 4 mg 01/01/19 21:30 01/02/19 17:44 Zofran IV 01/31/19 21:29 4 mg Q6H PRN Administration nausea NPO Date Last Intake of Fluids: 12/30/18 Time Last Intake of Fluids: 23:55 Last Intake of Fluids Comment: prior to shift. Date Last Intake of Solids: 12/30/18 Time Last Intake of Solids: 23:55 Last Intake of Solids Comment: prior to shift. Past Medical History Medical History Anemia No significant past medical history Tobacco abuse Exercise / Class Metabolic Activity II 4-5 Yardwork/Stairs/Walk up hill Past Surgical History Surgical History No significant past surgical history Past Anesthesia History No Hx of Anesthesia Complications and No Family Hx of Anesthesia Complications History of PONV No Hx of PONV and No Hx of Motion Sickness Social History Smoking Status: Current some day smoker tobacco type: cigarettes Hx Alcohol Use: No Hx Substance Use: Yes substance use type: marijuana Physical Exam Vital Signs Last Vital Signs Temp 36.7 C 01/03/19 15:44 Pulse 87 01/03/19 15:44 Resp 18 01/03/19 15:44 BP 107/69 01/03/19 15:44 Pulse Ox 97 01/03/19 15:44 Constitutional not obese ENMT Mouth: + poor dentition and + small oral opening Thyromental Distance: < 3.5 Finger Breadths Mallampati Class: II Neck normal visual inspection and trachea midline; neck extension not limited Respiratory normal respiratory effort Auscultation: lungs clear to auscultation bilaterally Cardiovascular Rate/Rhythm: regular rate and regular rhythm Heart Sounds: no murmur Musculoskeletal Spine: normal cervical ROM Neurologic moves all extremities Motor/Sensory: no sensory deficit Psychiatric Orientation: alert and oriented x 3 Testing Laboratory Results 01/03/19 08:27 01/03/19 08:27 Urine Color Dark Yellow 01/01/19 16:05 Urine Appearance Clear (Clear) 01/01/19 16:05 Urine pH 5.0 (4.5-7.5) 01/01/19 16:05 Ur Specific Palmer 1.035 (1.000-1.030) H 01/01/19 16:05 Urine Protein Negative (Negative) 01/01/19 16:05 Urine Glucose (UA) Negative (Negative) 01/01/19 16:05 Urine Ketones 1+ (Negative) H 01/01/19 16:05 Urine Nitrite Positive (Negative) A 01/01/19 16:05 Ur Leukocyte Esterase Negative (Negative) 01/01/19 16:05 Urine WBC (Auto) 1-5 /hpf (0-5) 01/01/19 16:05 Urine RBC (Auto) 0-4 /hpf (0-4) 01/01/19 16:05 U Hyaline Cast (Auto) 1-5 /lpf (0-5) 01/01/19 16:05 U Epithel Cells (Auto) >30 /lpf (0-5) H 01/01/19 16:05 Urine Bacteria (Auto) 2+ (Negative) H 01/01/19 16:05 01/01/19 16:05 Urine Culture - Final Urine,Clean Catch Escherichia coli 01/01/19 16:05 POC Ur Test NEG
[2019-01-03] MEDS ORDERED: LACTATED RINGER'S 1,000 ML IV SCH (16:15)
[2019-01-03] MEDS ORDERED: GLYCOPYRROLATE 0.2 MG/ML VIAL ONE (19:06)
[2019-01-03] MEDS ORDERED: DEXAMETHASONE SOD INJ 4 MG/ML VIAL ONE (19:06)
[2019-01-03] MEDS ORDERED: ONDANSETRON INJ 2 MG/ML 2 ML VIAL ONE (19:06)
[2019-01-03] MEDS ORDERED: LIDOCAINE HCL 2% 2 ML VIAL/AMP(20MG/ML) INFIL ONE (19:06)
[2019-01-03] MEDS ORDERED: PROPOFOL IV EMULSION 10 MG/ML 20 ML VIAL IV ONE (19:06)
[2019-01-03] MEDS ORDERED: NEOSTIGMINE METHYLSULFATE 5 MG/5 ML SYR ONE (19:06)
[2019-01-03] MEDS ORDERED: BUPIVACAINE 0.5 % 5 MG/1 ML MPF 30ML VIAL ONE (19:19)
--- NOTE | 2019-01-03 19:24 | Post Operative Brief Note ---
Immediate Post Op Note v1 Date of Surgery January 03, 2019 Pre & Post Diagnosis Operation Date: 01/03/19 14:00 Pre-Op Diagnosis: partial colon obstruction, possible internal hernia Post-Op Diagnosis: Partial colon obstruction, with internal hernia and redundant transverse colon Procedure Operation Date: 01/03/19 14:00 Actual Procedures p Exploratory Laparotomy, , resection of reduntant transverse colon - Xavier Trammell MD Surgeon Xavier Trammell MD Software Engineering Project Manager Nevaeh Wallace PA-C Estimated Blood Loss 15 Findings Consistent with Post-Op Diagnosis Specimens Transverse colon Drains Briggs Catheter (placed after induction by Chris Huber RN without difficulty and with return of clear, yellow urine. placed to gravity draIn and monitored by anesthesia for duration of procedure) Anesthesia Type General Complications none
[2019-01-03] MEDS ORDERED: FLUMAZENIL 0.1 MG/1 ML 10 ML VIAL IV PRN (19:46)
[2019-01-03] MEDS ORDERED: ePHEDrine sulfate 50 MG/ML AMP IV PRN (19:46)
[2019-01-03] MEDS ORDERED: ONDANSETRON INJ 2 MG/ML 2 ML VIAL IV PRN (19:46)
[2019-01-03] MEDS ORDERED: PROMETHAZINE HCL 12.5 MG in SODIUM CHLORIDE 0.9% 50 ML IV PRN (19:46)
[2019-01-03] MEDS ORDERED: NALOXONE HCL 0.4 MG/1 ML VIAL/CARP IV PRN (19:46)
[2019-01-03] MEDS ORDERED: HYDROmorphone INJ 1 MG/ML SYRINGE IV PRN (19:46)
[2019-01-03] MEDS ORDERED: KETOROLAC 30 MG/ML VIAL IV PRN (19:46)
[2019-01-03] MEDS ORDERED: ATROPINE SULFATE 0.1 MG/ML 10ML SYR IV PRN (19:46)
[2019-01-03] MEDS ORDERED: KETOROLAC 30 MG/ML VIAL ONE (19:47)
[2019-01-03] MEDS: fentaNYL citrate 100 MCG/2 ML VIAL IV PRN ×2 (19:50→19:55)
[2019-01-03] MEDS ORDERED: Nursing to Pharmacy Communication ONE (20:45)
--- NOTE | 2019-01-03 21:13 | Anesthesiology Progress Note ---
Date of Service January 03, 2019 Anesthesia Post Procedure Vital Signs Vital Signs: Temp Pulse Pulse Resp BP Pulse Ox 01/03/19 21:10 36.6 C 98 H 18 108/63 98 01/03/19 20:32 36.9 C 90 20 110/67 97 01/03/19 20:15 77 17 131/64 99 01/03/19 20:05 36.8 C 90 20 123/68 99 01/03/19 19:55 72 19 130/66 100 01/03/19 19:45 85 27 H 120/67 100 01/03/19 19:39 36.2 C L 91 H 28 H 116/67 100 01/03/19 15:44 36.7 C 87 18 107/69 97 01/03/19 15:23 37.2 C 90 16 100/64 97 01/03/19 07:13 37.0 C 85 18 104/65 97 01/02/19 23:35 36.7 C 75 16 104/64 99 Pain Intensity Medial Abdomen: Pain Intensity: 5 Transfer of Care Handoff Completed per policy Notes Mental Status: alert / awake / arousable Patient Amnestic to Procedure: Yes Nausea / Vomiting: adequately controlled Pain: adequately controlled Airway Patency, RR, SpO2: stable & adequate BP & HR: stable & adequate Hydration State: stable & adequate Anesthetic Complications: no major complications apparent
[2019-01-03] MEDS: MoRPHine SULFATE 4 MG/ML 1 ML CARP\\VIAL IV PRN ×2 (21:41→23:23)
[2019-01-04] MEDS: SODIUM CHLORIDE 0.9% 1000ML 1,000 ML IV SCH ×4 (01:26→19:57)
[2019-01-04] MEDS: MoRPHine SULFATE 4 MG/ML 1 ML CARP\\VIAL IV PRN ×4 (02:52→16:28)
[2019-01-04] MEDS ORDERED: OXYCODONE/ACETAMINOPHEN 5mg/325mg TAB PO PRN ×2 (07:53)
--- NOTE | 2019-01-04 07:57 | Operative Report ---
DATE OF OPERATION: 01/03/2019 PREOPERATIVE DIAGNOSIS: Partial colon obstruction. POSTOPERATIVE DIAGNOSIS: Partial colon obstruction with significantly redundant transverse colon, it was dilated and possible small internal hernia. PROCEDURE: Exploratory laparotomy with resection of transverse colon. SURGEON: Xavier Trammell M.D. MARINE TOWER OPERATOR: Nevaeh Wallace PA-C FINDINGS: After making incision, the transverse colon was located just below the upper midline vertical incision. I eviscerated the transverse colon, which was markedly redundant measuring at least 60 cm in length. It was also dilated with portions of it with diameter measuring 11 cm. There appeared to be a small "tunnel" that extended down along the mesentery of the transverse colon extending along the proximal jejunum towards the ligament of Treitz. The proximal jejunum was adherent to the mesentery of the transverse colon. The transverse colon was eviscerated pulling it out of that tunnel. There was also a loop of small bowel within that area that was mildly dilated as well and that was eviscerated. The tunnel was seen to be created by adhesions of the mesentery to the mesentery. These adhesions were divided and the attachments of the proximal jejunum to the mesentery of the transverse colon were carefully divided, which completely opened the tunnel. Once I eviscerated the transverse colon and replaced the small bowel into the abdomen, it was clear that there would be domain issues in trying to replace the colon. There was also a question due to the redundancy of the mesentery as to whether or not there was risk for volvulus. I inspected for the possibility of malrotation; however, the mesentery of normal length and oriented in a normal fashion. The ligament of Treitz appeared to be to the left of the midline and the cecum was in the right lower quadrant. The incision was extended inferiorly so that I could follow the colon distally and I was able to see its extension along the left lateral abdominal wall and extended down to the pelvis and the sigmoid colon was identified and seen to enter the pelvis. I then followed the small bowel distally until I could identify the terminal ileum and its juncture with the cecum and then followed the right colon superiorly until it turned at the hepatic flexure and then became this redundant transverse colon. I made a decision then to resect the redundant transverse colon. The site for division of what appeared to be fairly normal thickness of the bowel and just around the hepatic flexure was chosen. This was then decompressed. The bowel was divided using 2 firings of the Endo-OUMOU stapler. I then chose a site leaving some of the more redundant distal colon to not foreshorten the colon. This was divided using the OUMOU as well. The intervening mesentery was then divided using a cut-cut clamp in divide technique. The mesentery was divided near the colon so as to not compromise the blood supply to the remaining bowel. Once it was removed, I then performed a functional end-to-end handsewn anastomosis. There was no tension on the anastomosis. The posterior layer of 3-0 silk interrupted sutures was placed. Each of the limbs of the bowel was then opened and the posterior layer of 3-0 chromic was then laid in a full-thickness locked suture technique until I was at the corner and then in order to wrap around the corner towards the anterior surface, canal sutures were then chosen. This was all done in a running fashion with two 3-0 chromics working in opposite directions. The anterior layer of 3-0 silk Lembert sutures was then placed. The mesentery was closed with a running 2-0 Vicryl. The more posterior portion was closed prior to the anastomosis and then the remaining portion was closed after the anastomosis was completed. The bowel was placed back into its anatomic position. The small bowel was placed back into its anatomic position making sure that the mesentery was not twisted. The fascia was then closed with a running #1 PDS and the skin was closed with marco. Estimated blood loss was 15 mL. Sponge, needle and instrument counts were correct prior to closure. The patient tolerated the surgical procedure without complication and was transferred to recovery. I attest to the content of the Intraoperative Record and any orders documented therein. Any exception s are noted below.
[2019-01-04 08:17] LABS: Basophils # (auto) 0.01 K/uL (0-0.2); Basophils % (auto) 0.3 %; Eosinophils # (auto) 0.02 K/uL (0-0.5); Eosinophils % (auto) 0.6 %; Hematocrit (blood only) 33.6 % (37-47); Hemoglobin 11.5 g/dL (12.0-16.0); Immature Granulocytes # (auto) 0.01 K/uL (0.00-0.02); Immature Granulocytes % (auto) 0.3 %; Lymphocytes # (auto) 0.65 K/uL (1.2-3.4); Lymphocytes % (auto) 20.1 %; Mean Corpuscular Hgb Conc 34.2 g/dL (32-36); Mean Corpuscular Volume 84.8 fL (80-100); Mean Platelet Volume 10.2 fL (7.4-10.4); Monocytes # (auto) 0.45 K/uL (0.11-0.59); Monocytes % (auto) 13.9 %; Neutrophils % (auto) 64.8 %; Platelet Count 202 K/uL (130-400); RDW Coefficient of Variation 14.5 % (11.5-14.5); RDW Standard Deviation 45.1 fL (36.4-46.3); Red Blood Count 3.96 M/uL (4.2-5.4); White Blood Count 3.24 K/uL (4.8-10.8)
--- NOTE | 2019-01-04 08:30 | Anesthesiology Progress Note ---
Date of Service January 04, 2019 Anesthesia Post Procedure Vital Signs Vital Signs: Temp Pulse Pulse Resp BP BP Pulse Ox 01/04/19 07:04 37.5 C 117 H 18 112/68 96 01/04/19 03:55 37.4 C 111 H 18 107/64 95 01/03/19 23:31 36.7 C 109 H 16 105/67 95 01/03/19 22:33 37.1 C 92 H 18 117/75 93 01/03/19 21:29 36.4 C L 89 20 122/78 97 01/03/19 21:10 36.6 C 98 H 18 108/63 98 01/03/19 20:32 36.9 C 90 20 110/67 97 01/03/19 20:15 77 17 131/64 99 01/03/19 20:05 36.8 C 90 20 123/68 99 01/03/19 19:55 72 19 130/66 100 01/03/19 19:45 85 27 H 120/67 100 01/03/19 19:39 36.2 C L 91 H 28 H 116/67 100 01/03/19 15:44 36.7 C 87 18 107/69 97 01/03/19 15:23 37.2 C 90 16 100/64 97 Pain Intensity Medial Abdomen: Pain Intensity: 5 Notes Mental Status: alert / awake / arousable and participated in evaluation Patient Amnestic to Procedure: Yes Nausea / Vomiting: adequately controlled Pain: adequately controlled and improving with treatment Airway Patency, RR, SpO2: stable & adequate BP & HR: stable & adequate Hydration State: stable & adequate Anesthetic Complications: no major complications apparent
[2019-01-04 08:52] LABS: BUN Creatinine Ratio 12.9 (10-20); Blood Urea Nitrogen 7 mg/dl (7-18); Calcium 8.1 mg/dl (8.5-10.1); Carbon Dioxide 23 mmol/L (21-32); Chloride 112 mmol/L (98-107); Creatinine Clr Calc Pharmacy 160.7 ml/min; Est GFR (African American) > 150.0; Est GFR (Non-African American) 138.4; Glucose 121 mg/dl (70-99); Potassium 4.3 mmol/L (3.5-5.1); Sodium 140 mmol/L (136-145)
[2019-01-04] MEDS: CIPROFLOXACIN 400 MG/200 ML BAG IV SCH ×2 (08:52→19:57)
--- NOTE | 2019-01-04 11:10 | Surgery Progress Note ---
Date of Service January 04, 2019 Assessment & Plan (1) Large bowel obstruction: Postoperative day #1 status post oratory laparotomy with transverse colon resection Doing well today Have encouraged just ice chips and water again today Encouraged ambulation Await pathology Subjective Postoperative day #1 status post transverse colon resection Patient sitting in chair today Denies nausea and vomiting Has not had flatus or bowel movement yet Pain is well controlled Results & Data Vital Signs (Past 12 Hours) Vital Signs Temp Pulse Resp BP BP Pulse Ox 01/04/19 10:47 37.2 C 107 H 18 101/64 95 01/04/19 07:04 37.5 C 117 H 18 112/68 96 01/04/19 03:55 37.4 C 111 H 18 107/64 95 01/03/19 23:31 36.7 C 109 H 16 105/67 95 Laboratory Results 01/04/19 01/04/19 Range/Units 08:00 08:00 WBC 3.24 L (4.8-10.8) K/uL RBC 3.96 L (4.2-5.4) M/uL Hgb 11.5 L (12.0-16.0) g/dL Hct 33.6 L (37-47) % MCV 84.8 (80-100) fL MCH 29.0 (25-34) pg MCHC 34.2 (32-36) g/dL RDW Std Deviation 45.1 (36.4-46.3) fL RDW Coeff of Maxi 14.5 (11.5-14.5) % Plt Count 202 (130-400) K/uL MPV 10.2 (7.4-10.4) fL Immature Gran % (Auto) 0.3 % Neut % (Auto) 64.8 % Lymph % (Auto) 20.1 % Christian % (Auto) 13.9 % Eos % (Auto) 0.6 % Baso % (Auto) 0.3 % Immature Gran # (Auto) 0.01 (0.00-0.02) K/uL Neut # (Auto) 2.10 (1.4-6.5) K/uL Lymph # (Auto) 0.65 L (1.2-3.4) K/uL Christian # (Auto) 0.45 (0.11-0.59) K/uL Eos # (Auto) 0.02 (0-0.5) K/uL Baso # (Auto) 0.01 (0-0.2) K/uL Sodium 140 (136-145) mmol/L Potassium 4.3 (3.5-5.1) mmol/L Chloride 112 H (98-107) mmol/L Carbon Dioxide 23 (21-32) mmol/L Anion Gap 6.0 (3-11) BUN 7 (7-18) mg/dl Creatinine 0.51 L (0.6-1.2) mg/dl Est Cr Clr Drug Dosing 160.7 ml/min Est GFR ( Amer) > 150.0 Est GFR (Non-Af Amer) 138.4 BUN/Creatinine Ratio 12.9 (10-20) Glucose 121 H (70-99) mg/dl Calcium 8.1 L (8.5-10.1) mg/dl
[2019-01-05] MEDS: SODIUM CHLORIDE 0.9% 1000ML 1,000 ML IV SCH ×3 (02:23→15:19)
[2019-01-05] MEDS: MoRPHine SULFATE 4 MG/ML 1 ML CARP\\VIAL IV PRN ×2 (05:51→08:50)
[2019-01-05] MEDS: CIPROFLOXACIN 400 MG/200 ML BAG IV SCH ×2 (08:36→20:07)
[2019-01-05] MEDS ORDERED: MoRPHine SULFATE 2 MG/ML CARP IV PRN (09:12)
--- NOTE | 2019-01-05 09:17 | Surgery Progress Note ---
Date of Service January 05, 2019 Assessment & Plan (1) Large bowel obstruction: Postoperative day #2 status post transverse colon resection Doing well Peristalsis beginning to return and will begin sips of clear liquids Continue to encourage ambulation Path pending Subjective Postoperative day #2 status post transverse colon resection Having incisional pain only Denies nausea and vomiting Has not had flatus or bowel movement as yet Ambulated in the hallway this morning Physical Exam Gastrointestinal (Abdomen): Inspection/Auscultation: normal bowel sounds (Normal pitch but decreased intensity) and + abdominal surgical incision (Clean dry and intact) Percussion/Palpation: + abdomen not soft Results & Data Vital Signs (Past 12 Hours) Vital Signs Temp Pulse Resp BP BP Pulse Ox 01/05/19 07:10 37.2 C 96 H 18 104/64 95 01/04/19 23:15 37.5 C 108 H 16 95/61 L 97
[2019-01-05] MEDS: KETOROLAC TROMETHAMINE 10 MG TABLET PO PRN (13:38)
[2019-01-06] MEDS: SODIUM CHLORIDE 0.9% 1000ML 1,000 ML IV SCH ×3 (01:47→20:14)
[2019-01-06 05:57] LABS: Basophils # (auto) 0.03 K/uL (0-0.2); Basophils % (auto) 0.5 %; Eosinophils % (auto) 10.9 %; Hematocrit (blood only) 29.6 % (37-47); Hemoglobin 9.8 g/dL (12.0-16.0); Immature Granulocytes # (auto) 0.03 K/uL (0.00-0.02); Immature Granulocytes % (auto) 0.5 %; Lymphocytes # (auto) 1.25 K/uL (1.2-3.4); Lymphocytes % (auto) 22.8 %; Mean Corpuscular Hemoglobin 28.5 pg (25-34); Mean Corpuscular Hgb Conc 33.1 g/dL (32-36); Mean Platelet Volume 10.5 fL (7.4-10.4); Monocytes % (auto) 9.1 %; Neutrophils # (auto) 3.07 K/uL (1.4-6.5); Neutrophils % (auto) 56.2 %; Platelet Count 185 K/uL (130-400); RDW Coefficient of Variation 14.6 % (11.5-14.5); RDW Standard Deviation 46.1 fL (36.4-46.3); Red Blood Count 3.44 M/uL (4.2-5.4); White Blood Count 5.48 K/uL (4.8-10.8)
[2019-01-06 06:39] LABS: BUN Creatinine Ratio 13.3 (10-20); Blood Urea Nitrogen 4 mg/dl (7-18); Calcium 8.4 mg/dl (8.5-10.1); Carbon Dioxide 24 mmol/L (21-32); Chloride 106 mmol/L (98-107); Creatinine Clr Calc Pharmacy 282.6 ml/min; Est GFR (African American) > 150.0; Est GFR (Non-African American) > 150.0; Glucose 103 mg/dl (70-99); Potassium 3.6 mmol/L (3.5-5.1); Sodium 138 mmol/L (136-145)
[2019-01-06] MEDS: CIPROFLOXACIN 400 MG/200 ML BAG IV SCH ×2 (08:11→20:15)
[2019-01-06] MEDS: KETOROLAC TROMETHAMINE 10 MG TABLET PO PRN (08:45)
--- NOTE | 2019-01-06 09:28 | Surgery Progress Note ---
Date of Service January 06, 2019 Assessment & Plan (1) Large bowel obstruction: doing ok. RN with some concerns regarding morphine use. will d/c morphine. will change percocet to liquid lortab. will add IV tylenol keep on clears until return of bowel fx increase activity. Subjective pt awake/alert. no new complaints. no bowel fx yet. vanessa clears. Physical Exam Physical Exam: alert. nad no respiratory distress. abd: soft. wound looks good. Results & Data Vital Signs (Past 12 Hours) Vital Signs Temp Pulse Pulse Resp BP Pulse Ox 01/06/19 07:03 37.0 C 89 16 102/65 95 01/05/19 23:15 36.8 C 84 16 105/72 97 PG Care Time/CCT Total # of Minutes Spent Total Time Spent with Patient: Total time spent is greater than 50% in coord ination of care (as documented) at patient's floor/unit and/or counseling patient:
[2019-01-06] MEDS ORDERED: HYDROCODONE/APAP 2.5MG/108MG ELIX 5 ML UDP PO PRN ×2 (09:50)
[2019-01-06] MEDS: ACETAMINOPHEN 65 ML IV SCH ×2 (11:21→18:09)
[2019-01-06] MEDS: ONDANSETRON INJ 2 MG/ML 2 ML VIAL IV PRN (15:28)
[2019-01-06] MEDS ORDERED: PROMETHAZINE HCL 12.5 MG in SODIUM CHLORIDE 0.9% 50 ML IV PRN (21:13)
[2019-01-07] MEDS: ACETAMINOPHEN 65 ML IV SCH ×3 (02:41→18:39)
[2019-01-07] MEDS: SODIUM CHLORIDE 0.9% 1000ML 1,000 ML IV SCH ×3 (05:21→22:37)
--- NOTE | 2019-01-07 09:17 | Surgery Progress Note ---
Date of Service January 07, 2019 Assessment & Plan (1) Large bowel obstruction: vomitting yesterday. KUB still pending. pt difficult b/c she does not respond to questioning. ? baseline. nursing has some concerns regarding her home living situation. may have ileus. keep npo until after KUB. may need to place NGT if KUB looks bad Dr. Trammell back tomorrow. Subjective pt resting comfortably. very non-verbal. difficult to get answers to questions. had vomitting yesterday per nursing...none today. Physical Exam Physical Exam: alert. but does not really answer questions. abd: soft. minimal distension. incision looks good. no sign of infection. Results & Data Vital Signs (Past 12 Hours) Vital Signs Temp Pulse Resp BP Pulse Ox 01/07/19 07:00 36.9 C 105 H 16 107/67 90 01/06/19 23:00 37 C 98 H 16 104/67 92 PG Care Time/CCT Total # of Minutes Spent Total Time Spent with Patient: Total time spent is greater than 50% in coordination of care (as documented) at patient's floor/unit and/or counseling patient:
--- NOTE | 2019-01-07 09:25 | XRay Report ---
XR KUB/Abdomen 1 view CLINICAL HISTORY: nausea and vomiting COMPARISON STUDY: 01/03/2019 FINDINGS: Postsurgical changes are evident. There are anterior skin marco, and a left mid abdominal Suture line. The colon is no longer pathologically dilated. There are mildly dilated small bowel loop s, possibly secondary to a postoperative ileus. There is a somewhat unusual left upper quadrant gas c ollection likely representing stomach although the appearance is somewhat unusual. There are air bron chograms in the left lower lobe suggesting left lower lobe atelectasis/consolidation IMPRESSION: 1. Interval surgery 2. Mild small bowel dilatation, possibly representing a postoperative small bowel ileus 3. Somewhat unusual left upper quadrant air collection, statistically secondary to an unusual appeara nce of the stomach 4. Left lower lobe air bronchograms consistent with left lower lobe atelectasis/consolidation 5. If symptoms persist, an abdominal series with erect or decubitus views should be considered in fol low-up Electronically signed by: Carmine Bullock M.D. 01/07/2019 9:24 AM
[2019-01-07] MEDS: CIPROFLOXACIN 400 MG/200 ML BAG IV SCH ×2 (10:08→20:56)
[2019-01-07] MEDS: ONDANSETRON INJ 2 MG/ML 2 ML VIAL IV PRN (15:43)
[2019-01-08] MEDS: ACETAMINOPHEN 65 ML IV SCH ×3 (02:55→17:02)
[2019-01-08] MEDS: SODIUM CHLORIDE 0.9% 1000ML 1,000 ML IV SCH ×3 (05:27→19:52)
--- NOTE | 2019-01-08 13:20 | Surgery Progress Note ---
Date of Service January 08, 2019 Assessment & Plan (1) Large bowel obstruction: Postoperative day #5, status post transverse colon resection Peristalsis has returned. Patient is hungry. I would begin with clear liquids as she did have an ileus over the weekend. Encouraged ambulation Subjective Postoperative day #5, status post transverse colon resection Patient feels much better today Moved bowels and is passing flatus Nausea has resolved Is hungry Is having very little pain Physical Exam Gastrointestinal (Abdomen): Inspection/Auscultation: normal bowel sounds; abdomen not distended Percussion/Palpation: + abdomen tender (Minimal incisional) and abdomen soft Results & Data Vital Signs (Past 12 Hours) Vital Signs Temp Pulse Resp BP Pulse Ox 01/08/19 07:25 37.2 C 103 H 16 103/67 90
[2019-01-08] MEDS: KETOROLAC TROMETHAMINE 10 MG TABLET PO PRN (23:16)
[2019-01-09] MEDS: ACETAMINOPHEN 65 ML IV SCH ×3 (01:57→19:04)
[2019-01-09] MEDS: SODIUM CHLORIDE 0.9% 1000ML 1,000 ML IV SCH ×3 (01:57→16:46)
--- NOTE | 2019-01-09 14:40 | Surgery Progress Note ---
Date of Service January 09, 2019 Assessment & Plan (1) Large bowel obstruction: Postoperative day #6, status post transverse colon resection Remove 3 marco and there was purulent drainage that I expressed and irrigated and packed it. That needs to be done on a daily basis. Encourage p.o. intake Encouraged ambulation Subjective Postoperative day #6, status post transverse colon resection Continues to have bowel movements Tolerated clear liquids Denies nausea and vomiting Had what appeared to be purulent material on a dressing this morning No fever Physical Exam Gastrointestinal (Abdomen): Inspection/Auscultation: normal bowel sounds and + abdominal surgical incision ([place] color of the skin around the incision with purulent drainage from the lower portion); abdomen not distended Percussion/Palpation: abdomen soft Results & Data Vital Signs (Past 12 Hours) Vital Signs Temp Pulse Resp BP Pulse Ox 01/09/19 07:00 37.0 C 89 16 97/62 L 93
[2019-01-09] MEDS: metroNIDAZOLE 500 MG TAB PO SCH (22:14)
[2019-01-10] MEDS: ACETAMINOPHEN 65 ML IV SCH ×3 (03:05→18:44)
[2019-01-10] MEDS: SODIUM CHLORIDE 0.9% 1000ML 1,000 ML IV SCH ×2 (04:28→16:34)
--- NOTE | 2019-01-10 07:30 | Surgery Progress Note ---
Date of Service January 10, 2019 Assessment & Plan (1) Large bowel obstruction: Postoperative day #7, status post transverse colon resection Peristalsis has returned Advance to regular diet Wound infection has been drained Continue irrigation and packing Consult social service for home nursing evaluation Subjective Postoperative day #7, status post transverse colon resection Continues to have bowel movements Tolerated full liquid diet Has less incisional pain Physical Exam Gastrointestinal (Abdomen): Inspection/Auscultation: abdomen not distended Percussion/Palpation: + abdomen tender (Minimal incisional) and abdomen soft Results & Data Vital Signs (Past 12 Hours) Vital Signs Temp Pulse Resp BP Pulse Ox 01/10/19 07:23 36.9 C 84 16 102/65 94 01/09/19 23:30 37 C 81 16 113/75 94
[2019-01-10] MEDS: metroNIDAZOLE 500 MG TAB PO SCH ×3 (08:29→21:52)
[2019-01-10] MEDS: CIPROFLOXACIN 500 MG TAB PO SCH (08:29)
[2019-01-10] MEDS ORDERED: Nursing to Pharmacy Communication ONE (19:29)
[2019-01-11] MEDS: ACETAMINOPHEN 65 ML IV SCH ×3 (01:39→19:32)
[2019-01-11] MEDS: SODIUM CHLORIDE 0.9% 1000ML 1,000 ML IV SCH ×2 (04:57→17:41)
[2019-01-11] MEDS: CIPROFLOXACIN 500 MG TAB PO SCH ×4 (07:26→10:38)
[2019-01-11] MEDS: metroNIDAZOLE 500 MG TAB PO SCH ×5 (07:26→21:51)
--- NOTE | 2019-01-11 15:31 | Surgery Progress Note ---
Date of Service January 11, 2019 Assessment & Plan (1) Large bowel obstruction: Peristalsis has returned Patient tolerating regular diet Encouraged ambulation Encouraged her to take her antibiotics Consider discharge with home nursing for wound irrigation and packing For possible discharge tomorrow Subjective Postoperative day #8, status post excision of transverse colon Bowel movements continue Tolerating regular diet without nausea or vomiting Drainage from incision is decreased Level of discomfort has decreased Patient was not willing to take antibiotics today despite nursing attempts to encourage her to do so Physical Exam Gastrointestinal (Abdomen): Inspection/Auscultation: normal bowel sounds and + abdominal surgical incision (No surrounding erythema or pink color and area that was opened has healthy granulation tissue at the base with small amount of drainage); abdomen not distended Percussion/Palpation: abdomen soft Results & Data Vital Signs (Past 12 Hours) Vital Signs Temp Pulse Resp BP BP Pulse Ox 01/11/19 15:13 36.8 C 91 H 16 107/72 95 01/11/19 07:26 36.9 C 86 18 104/69 96
[2019-01-12] MEDS: ACETAMINOPHEN 65 ML IV SCH ×3 (02:15→18:40)
[2019-01-12] MEDS: SODIUM CHLORIDE 0.9% 1000ML 1,000 ML IV SCH ×2 (05:27→18:41)
--- NOTE | 2019-01-12 06:31 | Surgery Progress Note ---
Date of Service January 12, 2019 Assessment & Plan (1) Large bowel obstruction: Postoperative day #9, status post transverse colon resection Wound infection Patient is refusing oral antibiotics so I will change to IV antibiotics Continue ambulation Subjective Postoperative day #9, status post treatment is worse colon resection Feels well Still purulent drainage from incision Patient is refusing oral antibiotics Denies nausea and vomiting Tolerating regular diet Bowels moving Physical Exam Gastrointestinal (Abdomen): Inspection/Auscultation: normal bowel sounds and + abdominal surgical incision (Purulent drainage persists but surrounding pink color or erythema to incision has resolved); abdomen not distended Perc ussion/Palpation: abdomen soft Results & Data Vital Signs (Past 12 Hours) Vital Signs Temp Pulse Resp BP Pulse Ox 01/11/ 23:19 37.0 C 78 16 109/74 96
[2019-01-12] MEDS: metroNIDAZOLE 500 MG/100 ML BAG IV SCH ×3 (06:45→22:21)
[2019-01-12] MEDS: CIPROFLOXACIN 400 MG/200 ML BAG IV SCH ×2 (06:45→19:02)
[2019-01-13] MEDS: ACETAMINOPHEN 65 ML IV SCH ×3 (02:21→18:35)
[2019-01-13] MEDS: SODIUM CHLORIDE 0.9% 1000ML 1,000 ML IV SCH ×2 (06:15→20:58)
[2019-01-13] MEDS: metroNIDAZOLE 500 MG/100 ML BAG IV SCH ×3 (06:15→22:26)
[2019-01-13] MEDS: CIPROFLOXACIN 400 MG/200 ML BAG IV SCH ×2 (06:15→19:01)
[2019-01-13 06:34] LABS: Basophils # (auto) 0.02 K/uL (0-0.2); Basophils % (auto) 0.2 %; Eosinophils # (auto) 0.34 K/uL (0-0.5); Eosinophils % (auto) 3.9 %; Hematocrit (blood only) 29.6 % (37-47); Hemoglobin 9.6 g/dL (12.0-16.0); Immature Granulocytes # (auto) 0.39 K/uL (0.00-0.02); Immature Granulocytes % (auto) 4.5 %; Lymphocytes # (auto) 1.84 K/uL (1.2-3.4); Lymphocytes % (auto) 21.2 %; Mean Corpuscular Hemoglobin 28.4 pg (25-34); Mean Corpuscular Hgb Conc 32.4 g/dL (32-36); Mean Corpuscular Volume 87.6 fL (80-100); Mean Platelet Volume 9.9 fL (7.4-10.4); Monocytes # (auto) 0.54 K/uL (0.11-0.59); Monocytes % (auto) 6.2 %; Neutrophils # (auto) 5.56 K/uL (1.4-6.5); Platelet Count 232 K/uL (130-400); RDW Coefficient of Variation 15.3 % (11.5-14.5); RDW Standard Deviation 48.5 fL (36.4-46.3); Red Blood Count 3.38 M/uL (4.2-5.4); White Blood Count 8.69 K/uL (4.8-10.8)
[2019-01-13 07:22] LABS: Alanine Aminotransferase 34 U/L (12-78); Albumin Level 2.3 gm/dl (3.4-5.0); Aspartate Aminotransferase 29 U/L (15-37); BUN Creatinine Ratio 11.3 (10-20); Blood Urea Nitrogen 5 mg/dl (7-18); Calcium 8.7 mg/dl (8.5-10.1); Carbon Dioxide 28 mmol/L (21-32); Chloride 108 mmol/L (98-107); Creatinine Clr Calc Pharmacy 204.9 ml/min; Est GFR (African American) > 150.0; Est GFR (Non-African American) 149.9; Glucose 112 mg/dl (70-99); Potassium 2.8 mmol/L (3.5-5.1); Sodium 142 mmol/L (136-145)
[2019-01-13 07:25] LABS: Albumin Globulin Ratio 0.7 (0.9-2); Alkaline Phosphatase 115 U/L (45-117); Bilirubin,Total 0.1 mg/dl (0.2-1); Globulin 3.1 gm/dl (2.5-4.0); Total Protein 5.4 gm/dl (6.4-8.2)
--- NOTE | 2019-01-13 10:00 | Surgery Progress Note ---
Date of Service doing better, less abdominal pain, no fever, WBC normal 8,000. January 13, 2019 Assessment & Plan (1) Large bowel obstruction: Postoperative day #9, status post transverse colon resection Wound infection Patient is refusing oral antibiotics so I will change to IV antibiotics Continue ambulation 01/13/2019 10:00am. doing better, continue treatment, will F/U Supervising Physician Co-Signing Physician Notes The patient has minimal discomfort and minimal tenderness today. We initially plan for Gastrografin enema to evaluate the colon especially the splenic flexure. The patient has refused that procedure. As a second alternative we will consider CT scan of the abdomen and pelvis with oral and IV contrast. Subjective Postoperative day #9, status post treatment is worse colon resection Feels well Still purulent drainage from incision Patient is refusing oral antibiotics Denies nausea and vomiting Tolerating regular diet Bowels moving Physical Exam Constitutional: WD/WN, vitals as above well developed and well nourished Neck: trachea midline, no thyromegaly Respiratory: normal respiratory effort, lungs clear to auscultation Cardiovascular: RRR, no murmur, no edema Gastrointestinal (Abdomen): some drainage from incision site, no tenderness, Neurologic: awake Psychiatric: Orientation: alert and oriented x 3 Results & Data Vital Signs (Past 12 Hours) Vital Signs Temp Pulse Resp BP Pulse Ox 01/13/19 07:49 36.5 C 70 16 105/70 95 01/12/19 23:44 36.6 C 75 16 107/70 95 Laboratory Results Abnormal lab results 01/13/19 01/13/19 Range/Units 06:05 06:05 RBC 3.38 L (4.2-5.4) M/uL Hgb 9.6 L (12.0-16.0) g/dL Hct 29.6 L (37-47) % RDW Std Deviation 48.5 H (36.4-46.3) fL RDW Coeff of Maxi 15.3 H (11.5-14.5) % Immature Gran # (Auto) 0.39 H (0.00-0.02) K/uL Potassium 2.8 L (3.5-5.1) mmol/L Chloride 108 H (98-107) mmol/L BUN 5 L (7-18) mg/dl Creatinine 0.40 L (0.6-1.2) mg/dl Glucose 112 H (70-99) mg/dl Total Bilirubin 0.1 L (0.2-1) mg/dl Total Protein 5.4 L (6.4-8.2) gm/dl Albumin 2.3 L (3.4-5.0) gm/dl Albumin/Globulin Ratio 0.7 L (0.9-2)
[2019-01-13] MEDS: POTASSIUM CHLORIDE 20 MEQ TABCR PO SCH ×2 (20:58→23:52)
[2019-01-14] MEDS: ACETAMINOPHEN 65 ML IV SCH ×3 (02:04→18:24)
[2019-01-14] MEDS: metroNIDAZOLE 500 MG/100 ML BAG IV SCH ×3 (06:22→22:16)
[2019-01-14] MEDS: CIPROFLOXACIN 400 MG/200 ML BAG IV SCH ×2 (06:23→20:32)
[2019-01-14] MEDS: SODIUM CHLORIDE 0.9% 1000ML 1,000 ML IV SCH (11:10)
--- NOTE | 2019-01-14 11:57 | Surgery Progress Note ---
Date of Service doing fine, no abdominal pain, no fever, but low K 2.8, January 14, 2019 Assessment & Plan (1) Large bowel obstruction: Postoperative day #9, status post transverse colon resection Wound infection Patient is refusing oral antibiotics so I will change to IV antibiotics Continue ambulation 01/13/2019 10:00am. doing better, continue treatment, will F/U 01/14/2019 11:56AM DOING FINE, CONTINUE TREATMENT PO k-DUR 20meq Subjective Postoperative day #9, status post treatment is worse colon resection Feels well Still purulent drainage from incision Patient is refusing oral antibiotics Denies nausea and vomiting Tolerating regular diet Bowels moving Physical Exam Constitutional: WD/WN, vitals as above well developed and well nourished Neck: trachea midline, no thyromegaly Respiratory: normal respiratory effort, lungs clear to auscultation Cardiovascular: RRR, no murmur, no edema Neurologic: awake Psychiatric: Orientation: alert and oriented x 3
[2019-01-14] MEDS ORDERED: D5W AND 1/2NSS + 30MEQ KCL 30 MEQ/1,000 ML BAG IV SCH (12:30)
[2019-01-14] MEDS: POTASSIUM CHLORIDE 10 MEQ TABCR PO SCH ×3 (13:51→20:32)
[2019-01-14] MEDS: POTASSIUM CHLORIDE 30 MEQ in D5W AND 1/2NSS 1,000 ML IV SCH (13:58)
[2019-01-15] MEDS: ACETAMINOPHEN 65 ML IV SCH ×2 (02:08→09:11)
[2019-01-15 05:46] LABS: Alanine Aminotransferase 58 U/L (12-78); Albumin Globulin Ratio 0.7 (0.9-2); Albumin Level 2.5 gm/dl (3.4-5.0); Alkaline Phosphatase 123 U/L (45-117); Aspartate Aminotransferase 59 U/L (15-37); BUN Creatinine Ratio 10.6 (10-20); Bilirubin,Total 0.2 mg/dl (0.2-1); Blood Urea Nitrogen 5 mg/dl (7-18); Calcium 8.8 mg/dl (8.5-10.1); Carbon Dioxide 28 mmol/L (21-32); Chloride 108 mmol/L (98-107); Creatinine Clr Calc Pharmacy 174.4 ml/min; Est GFR (African American) > 150.0; Est GFR (Non-African American) 142.2; Globulin 3.4 gm/dl (2.5-4.0); Glucose 111 mg/dl (70-99); Potassium 3.3 mmol/L (3.5-5.1); Sodium 141 mmol/L (136-145); Total Protein 5.9 gm/dl (6.4-8.2)
[2019-01-15] MEDS: metroNIDAZOLE 500 MG/100 ML BAG IV SCH ×2 (06:09→14:10)
[2019-01-15] MEDS: CIPROFLOXACIN 400 MG/200 ML BAG IV SCH (06:09)
[2019-01-15] MEDS: POTASSIUM CHLORIDE 30 MEQ in D5W AND 1/2NSS 1,000 ML IV SCH (06:14)
[2019-01-15 06:58] VITALS: PULSE 84; TEMP 98.4; O2SAT 99
[2019-01-15] MEDS: POTASSIUM CHLORIDE 10 MEQ TABCR PO SCH (09:51)
[2019-01-15 14:46] VITALS: BP 103/69
--- NOTE | 2019-01-15 15:06 | Surgery Progress Note ---
Date of Service January 15, 2019 Assessment & Plan (1) Large bowel obstruction: Postoperative day #12, status post transverse colon resection Wound infection, afebrile - packing removed, healthy granulation tissue, clear drainage - + bowel function - tolerating diet Plan: Discharge home today Rx for Cipro x 10 days Follow-up surgical office 1 week Home health nursing to help with dressing/packing changes Tylenol/Ibuprofen as needed for pain Dr. Trammell has seen and examined pt, agrees with above Subjective feeling better today pain minimal tolerating diet, low appetite today at lunch no n/v ready to go home Physical Exam Constitutional: WD/WN, vitals as above no acute distress Gastrointestinal (Abdomen): Inspection/Auscultation: + abdominal surgical incision (midline laparotomy incision with marco, wound with packing present); abdomen not distended Percussion/Palpation: abdomen soft; abdomen nontender, no guarding and abdomen not rigid packing removed, healthy wound with granulation tissue present no necrosis Skin: no rashes, warm and dry Psychiatric: Orientation: alert and oriented x 3 Affect: + flat affect Results & Data Vital Signs (Past 12 Hours) Vital Signs Temp Pulse Resp BP BP Pulse Ox 01/15/19 14:44 36.9 C 84 16 103/69 99/63 L 99 01/15/19 06:58 36.9 C 84 16 99/63 L 99 Laboratory Results 01/15/19 Range/Units 04:37 Sodium 141 (136-145) mmol/L Potassium 3.3 L D (3.5-5.1) mmol/L Chloride 108 H (98-107) mmol/L Carbon Dioxide 28 (21-32) mmol/L Anion Gap 5.0 (3-11) BUN 5 L (7-18) mg/dl Creatinine 0.47 L (0.6-1.2) mg/dl Est Cr Clr Drug Dosing 174.4 ml/min Est GFR ( Amer) > 150.0 Est GFR (Non-Af Amer) 142.2 BUN/Creatinine Ratio 10.6 (10-20) Glucose 111 H (70-99) mg/dl Calcium 8.8 (8.5-10.1) mg/dl Total Bilirubin 0.2 (0.2-1) mg/dl AST 59 H (15-37) U/L ALT 58 (12-78) U/L Alkaline Phosphatase 123 H (45-117) U/L Total Protein 5.9 L (6.4-8.2) gm/dl Albumin 2.5 L (3.4-5.0) gm/dl Globulin 3.4 (2.5-4.0) gm/dl Albumin/Globulin Ratio 0.7 L (0.9-2)
--- NOTE | 2019-01-19 11:57 | Discharge Summary ---
Date of Service January 19, 2019 Admission HPI Per Admitting Provider This is a 18-year-old female presented to the emergency room with a complaint of abdominal pain that was centered mostly in the suprapubic area. The pain was crampy in nature. There were some sharp component. She had some nausea and had a few episodes of vomiting as well. She had not been able to eat much over the last 2 days. Since coming to the emergency room she was given some analgesic and anti-emetics and her pain and nausea and vomiting have resolved. She has not had any fever or chills. Her bowels she stated had been moving although a relative accompanied her and said that she for many years has had constipation. She has not had any melena or hematochezia. She has been passing flatus. She has no dysuria or hematuria. She had discomfort in the right side back in September. She was evaluated and underwent an ultrasound that demonstrated no evidence of acute appendicitis. Her discomfort resolved after about 3 to 4 days and did not return until today. Principal Diagnosis Large bowel obstruction Internal hernia Discharge Data Allergies Allergy/AdvReac Type Severity Reaction Status Date / Time No Known Allergies Allergy Verified 01/01/19 20:42 Consultations 01/01/19 18:25 Consult General Surgery Stat Procedures Performed Operation Date: 01/03/19 14:00 Actual Procedures p Exploratory Laparotomy, , resection of reduntant transverse colon - Xavier Trammell MD Ordered Studies 01/01/19 16:35 CT abd pelvis IV con only Stat 01/02/19 12:48 CT abd pelvis oral and IV con Routine 01/02/19 14:53 FL KUB Routine Hospital Course (1) Large bowel obstruction: Patient was admitted to the hospital by Dr. Trammell from the emergency room and kept n.p.o. started on IV fluids and pain management as needed. Given the findings of CT scan for possible internal hernia a contrast enema was ordered for further evaluation she has had no prior abdominal surgery. Hospital day #1 patient was scheduled for contrast enema however she refused the procedure. A repeat CT scan with oral and IV contrast was ordered to further evaluate the bowel. CT scan with oral and IV contrast showed persistent large bowel obstruction with transition point at the splenic flexure proximal descending colon likely due to presence of an internal hernia. There is no evidence of ischemia at the time. Patient was informed of CT scan results and exploratory laparotomy was recommended. Patient originally was unsure of surgical exploration however on hospital day #2 she agreed with surgery. She was taken to the operating room by Dr. Trammell and was found to have significant redundance of the colon with partial obstruction of the descending colon with a possible small internal hernia. Given the redundant and diffusely dilated colon the transverse colon was resected along with area of obstruction in order handsewn anastomosis was created. Patient tolerated procedure well and was transferred to recovery and then back to medical/surgical floor for postoperative care. Postop day #1 pain moderate but controlled afebrile no nausea or vomiting patient was kept on ice chips and sips. Postop day 2 peristalsis beginning to return and diet advanced to sips of clear liquids. Postop day #3 and 4 patient had some vomiting and likely an ileus she was kept n.p.o. Postop day #5 patient doing better no vomiting and actually had an appetite. Clear liquids were started again. Postop day #6 unfortunately there was some purulent drainage from the inferior aspect of the incision and marco were removed and wound was irrigated and packed she was already receiving IV Cipro for a uncomplicated UTI. Diet was advance as tolerated patient started having bowel movements. She was kept up until postop day #12 for postop wound infection and IV antibiotics as she refused oral antibiotics. Postop day #12 patient feeling well pain controlled and tolerating diet. Patient was discharged home on a course of oral antibiotics and recommended to follow-up in the surgery office in 1 week. (2) UTI (urinary tract infection): Started on IV cipro on HD # 1 (3) Post op infection: as above Total Time Total Time Spent Total Time Spent (In Minutes): 30 Total Time Includes: Examination of the Patient, Discharge Planning and Medication Reconciliation Discharge Plan Discharge Items Patient Disposition: Home - Home Health Services Reason For Visit: DILATED COLON Discharge Diagnosis: Dilated and Redundant colon Internal hernia Activity: Per Instructions section Non-emergency contact: Surgeon Call non-emergency contact if: your pain is not controlled, your pain is worsening, your pain is concerning for you, you have a fever, your temperature is above 101, your wound has increased redness, your wound has increased drainage and your wound pain has increased Follow-up/Referrals: Deb Dolan MD [Primary Care Provider] - Diet: Low Fiber Addtl Attending Provider Instructions: Post-Surgical ~Discharge Instructions Activity Recommendations: - lifting limitation: (10 pounds for 6 weeks), - exercise/sex/sports limit: (nonstrenuous for 6 weeks), - driving or machine use limit: (none for 1 week), - Shower/bathe limit: (may shower) Diet: -Low Fiber diet until instructed by surgeon SPECIAL CARE INSTRUCTIONS: - May shower. Let water run over area and pat dry. - Surgical marco will be removed in office. - Call the surgeon's office with any questions or concerns - - (ex. temperature higher than 101 degrees F, excessive bleeding or pain). - Home health nursing will change packing for you. - It is very important for you to take entire course of oral antibiotics as prescribed to prevent further wound infection. MEDICATIONS: - Resume previous medications unless instructed otherwise by your surgeon. - Ibuprofen 600 mg every 6 hours with food - Tylenol 650 mg every 6 hours as needed for pain FOLLOW UP VISIT: - call the office to schedule a one-two week follow-up appointment. You will need marco removed in about 10-14 days from your surgery. Call office for a nurse visit to take your marco out. Office number Pending Studies at Discharge: No Stand-Alone Forms: My [facility] Medications and DC Order Prescriptions: New ciprofloxacin HCl [Cipro] 500 mg tablet 500 mg PO BID Qty: 20 RF: 0 No Action No Known Home Medications RF: 0 Discharge Orders: Discharge Order (Routine); Ordered 01/15/19 Ordered By: Nevaeh Orellana/Other Patient Handouts: Diet Low Residue Admission Data Admit Date/Time: 01/03/19 09:09 Attending Provider: Xavier Trammell Admit Provider: Xavier Trammell Primary Care Provider: Deb Dolan Other Providers: Xavier Trammell ; [facility] Other Interventions: Discharge Summary Assessment (RN) Last Done: 01/15/19 15:36 DC Date/Time DO NOT enter until pt leaves facility: 01/15/19 15:52
== END 2019-01-15 15:52 | disposition home health service (06) | DRG 330 ==
LOC: 3N 14:32 → ED 14:32 → 3N 20:30

== ENCOUNTER 2019-09-07 11:17 | Inpatient (IN) ==
[2019-09-07] MEDS ORDERED: fentaNYL citrate 100 MCG/2 ML VIAL IV STA (11:52)
[2019-09-07] MEDS ORDERED: ONDANSETRON INJ 2 MG/ML 2 ML VIAL IV STA (11:52)
[2019-09-07] MEDS ORDERED: SODIUM CHLORIDE 0.9% 1000ML 1,000 ML IV SCH (11:54)
--- NOTE | 2019-09-07 12:14 | Emergency Department Note ---
History of Present Illness General Chief complaint: Vomiting Stated complaint: VOMITING,ABD PAIN Time Seen by Provider: 09/07/19 11:39 History of Present Illness Maximum Pain Intensity: 8 Patient is a 19-year-old female with past medical history significant for colonic obstruction status post ex lap and transverse colon resection who presents the emergency department for evaluation of abdominal pain, nausea and vomiting. Her symptoms started Tuesday, 3 days ago. She reports diffuse abdominal discomfort, primarily upper abdomen, with associated nausea and vomiting. She reports that she has vomited 9-10 times in the last 3 days, last emesis was this morning prior to coming to the emergency department. She is tried sipping on fluids, otherwise has not done anything additional for her symptoms. No medications. She denies any diarrhea. No urinary symptoms. No fever or chills. She denies hematemesis. Her last bowel movement was this morning, was formed and brown without blood or melena. She denies any sick contacts at home or at work. She denies any unusual food or water consumption, foreign travel or recent antibiotic use. She states that this does not feel sim ilar to the pain that she had in December 2018 when she had a bowel resection. Last menstrual period was 2 weeks ago. Home Medications Home Medications Medication Instructions Recorded Confirmed Type No Known Home Medications 09/07/19 09/07/19 History Allergies Allergy/AdvReac Type Severity Reaction Status Date / Time No Known Allergies Allergy Verified 09/07/19 12:24 Past Med/Surg History Medical History Anemia No significant past medical history Tobacco abuse Surgical History No significant past surgical history Social History Preferred Language: Bengali Communication Ability: Effective Fish Seiner Required: No Beliefs That Will Affect Care: None marital status: Single Current Living Situation: Family Current Living Situation Comment: Grandmother current occupational status: employed current occupation: works at [employer] Other Information That Helps Us Care for You: No Feels Safe at Home: Yes Safety Concerns: Feels Safe At This Time Smoking Status: Current every day smoker Tobacco Type: cigarettes ; Do You Dip or Chew Tobacco: No ; Hx Alcohol Use: No Hx Substance Use: No Review of Systems A total of 10 systems reviewed and were otherwise negative Physical Exam Vital Signs Vital Signs - 24 hr 09/07/19 16:10 09/07/19 16:35 09/07/19 19:21 Temperature 37.0 C 36.5 C Temperature Source Oral Temporal Artery Scan Pulse Rate [Apical] 113 H Pulse Rate [Right Finger] 93 H 95 H Pulse Rhythm [Apical] Regular Pulse Rhythm [Right Finger] Regular Pulse Strength [Right Finger] Normal Respiratory Rate 17 18 21 Respiratory Effort / Characteristics Non-Labored Spontaneous Non-Labored Spontaneous Respiratory Depth Normal Normal Respiratory Pattern Regular Regular Blood Pressure [Left Arm] 110/71 Blood Pressure [Right Arm] 108/63 111/62 Blood Pressure Mean [Left Arm] 84 Blood Pressure Mean [Right Arm] 78 78 Blood Pressure Position [Left Arm] Semi-fowlers Blood Pressure Position [Right Arm] Semi-fowlers Pulse Oximetry 94 96 100 Oxygen Delivery Method Room Air Room Air Oxymask Oxygen Flow Rate 10 09/07/19 19:30 09/07/19 19:40 09/07/19 20:00 Temperature 37.0 C 37.1 C Temperature Source Temporal Artery Scan Oral Pulse Rate [Apical] 94 H 100 H Pulse Rate [Right Finger] 101 H Pulse Rhythm [Apical] Regular Regular Pulse Rhythm [Right Finger] Regular Pulse Strength [Right Finger] Normal Respiratory Rate 15 17 14 Respiratory Effort / Characteristics Non-Labored Spontaneous Non-Labored Spontaneous Non-Labored Spontaneous Respiratory Depth Normal Normal Normal Respiratory Pattern Regular Regular Regular Blood Pressure [Left Arm] 113/57 L 104/60 101/65 Blood Pressure [Right Arm] Blood Pressure Mean [Left Arm] 75 74 77 Blood Pressure Mean [Right Arm] Blood Pressure Position [Left Arm] Semi-fowlers Semi-fowlers Lying Blood Pressure Position [Right Arm] Pulse Oximetry 98 93 95 Oxygen Delivery Method Room Air Nasal Cannula Nasal Cannula Oxygen Flow Rate 2 2 CONSTITUTIONAL: Patient is an ill although nontoxic appearing 19-year-old female who is awake and alert and in no acute distress. She is noted to be tachycardic in triage. EYES: Pupils equal, round, reactive to light and accommodation. EOMs intact without nystagmus. Sclera are anicteric. ENT: Tympanic membranes intact, with normal landmarks. External canals are clear. Oral and nasopharynx are clear. Mucous membranes are dry, poor dentition and plaque buildup noted,, no lesions, tongue and gums appear normal. CARDIOVASCULAR: Tachycardic rate and rhythm, with normal S1 and S2, no murmur or gallop or rub is heard. Peripheral pulses easy to palpable. RESPIRATORY: Breath sounds equal and clear to auscultation without wheezes, rales, or rhonchi heard. Full and equal chest expansion without accessory muscle use or retractions. GI: Bowel sounds are present-hypoactive. Well-healed surgical scar noted. Abdomen is soft, nondistended, tender to percussion in the epigastric area, and diffusely tender to palpation, primarily in the upper quadrants and epigastric region there is no guarding or rebound. MUSCULOSKELETAL: Full range of motion of extremities x 4 with good strength. No cyanosis, edema, joint tenderness or swelling. No deformity. INTEGUMENTARY: No lesions or rash, normal skin turgor. NEUROLOGICAL: Alert, oriented, and cooperative. Cranial nerves, sensation and strength grossly intact. Pupils round, equal, and react to light, EOMs are full. LYMPH: No lymphadenopathy. Course Course The patient was seen and assessed as above. Old records were reviewed. IV lock was initiated and laboratory studies were collected. Patient was made n.p.o. She was hydrated with normal saline solution and medicated with fentanyl 50 mcg and Zofran 4 mg IV for pain and nausea. CBC with differential, CMP, lipase, serum hCG and urinalysis were ordered. Acute abdominal x-ray was obtained. Laboratory studies noted a normal white count of 6100, no left shift or ban demia. No anemia. Electrolytes are without significant abnormality which require correction, BUN 21 and creatinine 0.87. Transaminases are not elevated. Lipase is within normal limits. Serum hCG is negative. Urine microscopy is concerning for contamination with greater than 30 epithelial cells, however is nitrate positive with 5-10 WBCs and bacteria present. Urine culture is pending. Given UA findings, did cover the patient empirically with ceftriaxone 1 gram IV. Acute abdominal series is concerning for dilated large and small bowel with air- fluid levels noted in the central and left upper abdomen, suspicious for infection or ileus. No pneumoperitoneum. Patient history, presentation and ED work-up were reviewed with Dr. Real. CT scan of the abdomen and pelvis with IV contrast was ordered. The patient was reassessed at this time. She was made aware of the results of her labs and x-ray, and told that she would be going to CT. She reported that she was feeling "a little" better. She was complaining that her mouth and lips were dry. She was encouraged to remain n.p.o. The patient was reassessed when she returned from CT. CT scan findings are concerning for a high-grade small bowel obstruction with transition point in the mid abdomen. She was made aware that it appears she has another bowel obstruction. Consultation was placed with general surgery, patient was reviewed with Rhonda Luong PA-C. They will plan to see the patient in the emergency department. NG tube placement was ordered. Patient was evaluated by general surgery, Dr. Small and KAYCE Luong, and they have decided to take the patient directly to the OR. Administered Medications Heparin Sodium (Porcine) (Heparin Sodium (Porcine)) 5,000 units SQ Q12 DENICE Stop: 10/08/19 08:59 Last Admin: 09/08/19 09:07 Dose: 5,000 units Documented by: [id number] Cosigned by: [id number] Potassium Chloride/Sodium Chloride (Normal Saline W/20 Meq Kcl) 20 meq in 1,000 mls @ 125 mls/hr IV .Q8H DENICE Stop: 10/07/19 20:29 Last Admin: 09/08/19 13:27 Dose: 125 mls/hr Documented by: [id number] Infusion: 09/08/19 13:27 Dose: 125 mls/hr Documented by: [id number] Infusion: 09/08/19 09:20 Dose: 125 mls/hr Documented by: [id number] Infusion: 09/08/19 08:18 Dose: 0 mls/hr Documented by: [id number] Admin: 09/08/19 04:47 Dose: 125 mls/hr Documented by: [id number] Infusion: 09/08/19 04:47 Dose: 125 mls/hr Documented by: [id number] Admin: 09/07/19 21:04 Dose: 125 mls/hr Documented by: [id number] Ceftriaxone Sodium 1,000 mg/ (Dextrose) 50 mls @ 100 mls/hr IV Q24H [facility]; Protocol Stop: 09/13/19 13:59 Last Admin: 09/08/19 13:27 Dose: 100 mls/hr Documented by: [id number] Acetaminophen (Ofirmev) 1,000 mg in 100 mls @ 400 mls/hr IV Q8H PRN PRN Reason: Pain Stop: 09/11/19 05:56 Last Admin: 09/08/19 13:26 Dose: 400 mls/hr Documented by: [id number] Discontinued Medications Cefoxitin Sodium (Mefoxin) Confirm Administered Dose 2,000 mg .ROUTE .STK-MED ONE Stop: 09/07/19 15:59 Last Admin: 09/07/19 16:21 Dose: 2,000 mg Documented by: [id number] Fentanyl Citrate (Fentanyl Citrate) 50 mcg IV NOW STA Stop: 09/07/19 11:53 Last Admin: 09/07/19 12:05 Dose: 50 mcg Documented by: [id number] Fentanyl Citrate (Fentanyl Citrate) 25 mcg IV Q5M PRN PRN Reason: PACU Use Only-Pain Stop: 09/08/19 01:27 Last Admin: 09/07/19 19:25 Dose: 25 mcg Documented by: [id number] Sodium Chloride (Nss 1000ml) 1,000 mls @ 999 mls/hr IV .Q1H1M [facility] Stop: 09/07/19 12:54 Last Infusion: 09/07/19 12:32 Dose: 0 mls/hr Documented by: [id number] Admin: 09/07/19 12:04 Dose: 999 mls/hr Documented by: [id number] Ceftriaxone Sodium (Rocephin) 1,000 mg in 50 mls @ 100 mls/hr IV NOW STA Stop: 09/07/19 14:22 Last Infusion: 09/07/19 15:00 Dose: 0 mls/hr Documented by: [id number] Admin: 09/07/19 14:14 Dose: 100 mls/hr Documented by: [id number] Lactated Ringer's (Lr) 1,000 mls @ 200 mls/hr IV .Q5H DENICE Stop: 10/07/19 15:29 Last Admin: 09/07/19 20:32 Dose: Not Given Documented by: [id number] Acetaminophen (Ofirmev) 1,000 mg in 100 mls @ 400 mls/hr IV NOW ONE Stop: 09/07/19 19:08 Last Infusion: 09/07/19 19:40 Dose: 0 mls/hr Documented by: [id number] Admin: 09/07/19 19:25 Dose: 400 mls/hr Documented by: [id number] Ceftriaxone Sodium 1,000 mg/ (Dextrose) 50 mls @ 100 mls/hr IV Q24H [facility]; Protocol Stop: 09/12/19 20:09 Last Admin: 09/07/19 20:32 Dose: Not Given Documented by: [id number] Sodium Chloride (Nss) 500 mls @ 999 mls/hr IV .Q31M [facility] Stop: 09/08/19 07:30 Last Infusion: 09/08/19 09:35 Dose: 0 mls/hr Documented by: [id number] Admin: 09/08/19 08:18 Dose: 999 mls/hr Documented by: [id number] Ioversol (Optiray 320 100ml) 93 ml IV ONCE PRN PRN Reason: Interaction Checking Stop: 09/11/19 14:19 Last Admin: 09/07/19 14:20 Dose: 93 ml Documented by: [id number] Lice Killing Shampoo : Non-Formulary Patient's Own Med 1 ea TOP TODAY@1300 DENICE; Protocol Stop: 09/08/19 13:10 Last Admin: 09/08/19 13:28 Dose: 1 ea Documented by: [id number] Ondansetron HCl (Zofran) 4 mg IV NOW STA Stop: 09/07/19 11:53 Last Admin: 09/07/19 12:04 Dose: 4 mg Documented by: [id number] Permethrin (Elimite 5%) 60 appln EXT ONE ONE Stop: 09/07/19 23:31 Last Admin: 09/08/19 00:40 Dose: 60 appln Documented by: [id number] Permethrin (Elimite 5%) 60 appln EXT ONE ONE Stop: 09/08/19 01:01 Last Admin: 09/08/19 01:00 Dose: 60 appln Documented by: [id number] Permethrin (Elimite 5%) 1 appln EXT ONE ONE Stop: 09/08/19 03:59 Last Admin: 09/08/19 05:12 Dose: Not Given Documented by: [id number] Medical Decision Making Differential Diagnosis Differential diagnoses entertained included GERD, gastritis, esophagitis, infectious versus inflammatory colitis/enteritis, foodborne illness, bowel obstruction, perforation, abscess, mass or malignancy, among others. Medical Records Attestation: I reviewed the patient's medical records. Home Medications Current Medication List: was personally reviewed by me Laboratory Data Attestation: I reviewed the patient's lab results. Result diagrams: 09/08/19 06:19 09/08/19 06:19 Lab Results 09/07/19 09/07/19 09/07/19 Range/Units 11:37 11:37 11:37 WBC 6.12 (4.8-10.8) K/uL RBC 4.99 (4.2-5.4) M/uL Hgb 14.8 (12.0-16.0) g/dL Hct 43.0 (37-47) % MCV 86.2 (80-100) fL MCH 29.7 (25-34) pg MCHC 34.4 (32-36) g/dL RDW Std Deviation 43.5 (36.4-46.3) fL RDW Coeff of Maxi 14.0 (11.5-14.5) % Plt Count 263 (130-400) K/uL MPV 10.6 H (7.4-10.4) fL Immature Gran % (Auto) 0.2 % Neut % (Auto) 57.8 % Lymph % (Auto) 24.2 % Clare % (Auto) 14.5 % Eos % (Auto) 2.8 % Baso % (Auto) 0.5 % Immature Gran # (Auto) 0.01 (0.00-0.02) K/uL Neut # (Auto) 3.54 (1.4-6.5) K/uL Lymph # (Auto) 1.48 (1.2-3.4) K/uL Clare # (Auto) 0.89 H (0.11-0.59) K/uL Eos # (Auto) 0.17 (0-0.5) K/uL Baso # (Auto) 0.03 (0-0.2) K/uL Sodium 137 (136-145) mmol/L Potassium 4.0 (3.5-5.1) mmol/L Chloride 105 (98-107) mmol/L Carbon Dioxide 26 (21-32) mmol/L Anion Gap 6.0 (3-11) BUN 21 H (7-18) mg/dl Creatinine 0.87 (0.6-1.2) mg/dl Est Cr Clr Drug Dosing 92.1 ml/min Est GFR ( Amer) 110.4 Est GFR (Non-Af Amer) 95.2 BUN/Creatinine Ratio 24.2 H (10-20) Glucose 119 H (70-99) mg/dl Calcium 9.6 (8.5-10.1) mg/dl Total Bilirubin 1.0 (0.2-1) mg/dl AST 17 (15-37) U/L ALT 29 (12-78) U/L Alkaline Phosphatase 97 (45-117) U/L Total Protein 8.3 H (6.4-8.2) gm/dl Albumin 3.9 (3.4-5.0) gm/dl Globulin 4.4 H (2.5-4.0) gm/dl Albumin/Globulin Ratio 0.9 (0.9-2) Lipase 36 L (73-393) U/L HCG, Qual Negative (Negative) Urine Color Urine Appearance (Clear) Urine pH (4.5-7.5) Ur Specific Freedom (1.000-1.030) Urine Protein (Negative) Urine Glucose (UA) (Negative) Urine Ketones (Negative) Urine Blood (Negative) Urine Nitrite (Negative) Urine Bilirubin (Negative) Urine Urobilinogen (Negative) Ur Leukocyte Esterase (Negative) Urine WBC (Auto) (0-5) /hpf Urine RBC (Auto) (0-4) /hpf U Hyaline Cast (Auto) (0-5) /lpf U Epithel Cells (Auto) (0-5) /lpf Urine Bacteria (Auto) (Negative) Urine Mucus (None Prsent) 09/07/19 Range/Units 12:42 WBC (4.8-10.8) K/uL RBC (4.2-5.4) M/uL Hgb (12.0-16.0) g/dL Hct (37-47) % MCV (80-100) fL MCH (25-34) pg MCHC (32-36) g/dL RDW Std Deviation (36.4-46.3) fL RDW Coeff of Maxi (11.5-14.5) % Plt Count (130-400) K/uL MPV (7.4-10.4) fL Immature Gran % (Auto) % Neut % (Auto) % Lymph % (Auto) % Clare % (Auto) % Eos % (Auto) % Baso % (Auto) % Immature Gran # (Auto) (0.00-0.02) K/uL Neut # (Auto) (1.4-6.5) K/uL Lymph # (Auto) (1.2-3.4) K/uL Clare # (Auto) (0.11-0.59) K/uL Eos # (Auto) (0-0.5) K/uL Baso # (Auto) (0-0.2) K/uL Sodium (136-145) mmol/L Potassium (3.5-5.1) mmol/L Chloride (98-107) mmol/L Carbon Dioxide (21-32) mmol/L Anion Gap (3-11) BUN (7-18) mg/dl Creatinine (0.6-1.2) mg/dl Est Cr Clr Drug Dosing ml/min Est GFR ( Amer) Est GFR (Non-Af Amer) BUN/Creatinine Ratio (10-20) Glucose (70-99) mg/dl Calcium (8.5-10.1) mg/dl Total Bilirubin (0.2-1) mg/dl AST (15-37) U/L ALT (12-78) U/L Alkaline Phosphatase (45-117) U/L Total Protein (6.4-8.2) gm/dl Albumin (3.4-5.0) gm/dl Globulin (2.5-4.0) gm/dl Albumin/Globulin Ratio (0.9-2) Lipase (73-393) U/L HCG, Qual (Negative) Urine Color Layne Urine Appearance Cloudy A (Clear) Urine pH 5.0 (4.5-7.5) Ur Specific Freedom 1.034 H (1.000-1.030) Urine Protein Trace H (Negative) Urine Glucose (UA) Negative (Negative) Urine Ketones Trace H (Negative) Urine Blood Negative (Negative) Urine Nitrite Positive A (Negative) Urine Bilirubin Negative (Negative) Urine Urobilinogen Negative (Negative) Ur Leukocyte Esterase Negative (Negative) Urine WBC (Auto) 5-10 H (0-5) /hpf Urine RBC (Auto) 0-4 (0-4) /hpf U Hyaline Cast (Auto) 1-5 (0-5) /lpf U Epithel Cells (Auto) >30 H (0-5) /lpf Urine Bacteria (Auto) 1+ H (Negative) Urine Mucus Present A (None Prsent) Imaging Data Attestation: I personally reviewed and interpreted this imaging study as f danie: Radiologist's Impression: XR abdomen 2V w PA chest HISTORY: 19 years-old Female ABD PAIN, N/V, HX OF OBSTRUCTION acute generalized abdominal pain with nausea and vomiting COMPARISON: [facility] 01/07/2019, CT abdomen and pelvis 01/02/2019 TECHNIQUE: PA view of the chest with erect and supine views of the abdomen FINDINGS: Cardiomediastinal and hilar silhouettes are within normal limits. No pneumothorax, pleural effusion, airspace consolidation or overt pulmonary edema. Bones of the chest appear grossly intact. Dilated loops of large and small bowel are noted within the central abdomen and abdominal left upper quadrant demonstrating air-fluid levels. Large bowel measures up to 8.9 cm. Small bowel measures up to 4.8 cm. Surgical suture material is noted within the lateral left midabdomen. Moderate fecal retention of the right hemicolon. There is relative paucity of gas within the lower abdomen and pelvis. No pneumatosis or pneumoperitoneum. No urolith. Bones appear intact. IMPRESSION: Dilated large and small bowel with air-fluid levels are noted within the central abdomen and abdominal left upper quadrant suspicious for obstruction or ileus. No pneumoperitoneum identified. Close follow-up is needed. CT OF THE ABDOMEN AND PELVIS WITH CONTRAST CLINICAL HISTORY: Abdominal pain. Evaluate for obstruction. COMPARISON STUDY: CT of the abdomen and pelvis January 02, 2019. TECHNIQUE: Following IV administration of 93 mL of Optiray-320, axial images of the abdomen and pelvis were obtained from the lung bases to the proximal femurs. Images were reviewed in the axial, sagittal, and coronal planes. IV contrast was administered without complication. Automated exposure control was utilized for the study. A dose lowering technique was utilized adhering to the principles of ALARA. CT DOSE: 335.78 mGy.cm FINDINGS: Trace bilateral pleural effusions are noted. No pneumatosis, free air or portal venous gas is present. The spleen, adrenal glands, kidneys and pancreas are normal. There is no biliary or pancreatic ductal dilatation. Postoperative findings at the level the splenic flexure of the colon are noted. There is no evidence for a colonic obstruction. However, the proximal to mid small bowel is fluid-filled and markedly dilated, measuring up to 4.8 cm in caliber. Transition point within the mid abdomen shown on axial image 282 of 486. Several small bowel loops converge on this point. More distal small bowel is decompressed. There is mild swirling of the mesentery. Mild mesenteric infiltration and a small amount of ascites. No bowel wall thickening is noted. A dominant follicle within the left ovary is noted. There are no suspicious osseous lesions. There is no lymphadenopathy. Major vasculature is patent. IMPRESSION: Findings consistent with a high-grade small bowel obstruction with transition point within the mid abdomen. Markedly dilated, fluid-filled proximal to mid small bowel with decompressed distal small bowel. Small amount of associated ascites and mesenteric infiltration. Blood Pressure Blood Pressure Findings: Normal blood pressure Blood Pressure Disposition: did not require urgent referral MDM Narrative See ED Course. Impression & Plan Small bowel obstruction Discharge Plan Visit Data *Final* Discharge Date/Time: 09/07/19 16:38 Chief Complaint: Vomiting Stated Complaint: VOMITING,ABD PAIN ED Provider: Isael Real ED Midlevel Provider: Hu Swartz Discharge Problem: Small bowel obstruction Patient Disposition: Admitted As Inpatient Discharge Instructions Interventions: ED Discharge Assessment Last Done: 09/07/19 16:13
[2019-09-07 12:19] LABS: Basophils # (auto) 0.03 K/uL (0-0.2); Basophils % (auto) 0.5 %; Eosinophils # (auto) 0.17 K/uL (0-0.5); Eosinophils % (auto) 2.8 %; Hemoglobin 14.8 g/dL (12.0-16.0); Immature Granulocytes # (auto) 0.01 K/uL (0.00-0.02); Immature Granulocytes % (auto) 0.2 %; Lymphocytes # (auto) 1.48 K/uL (1.2-3.4); Lymphocytes % (auto) 24.2 %; Mean Corpuscular Hemoglobin 29.7 pg (25-34); Mean Corpuscular Hgb Conc 34.4 g/dL (32-36); Mean Corpuscular Volume 86.2 fL (80-100); Mean Platelet Volume 10.6 fL (7.4-10.4); Monocytes # (auto) 0.89 K/uL (0.11-0.59); Monocytes % (auto) 14.5 %; Neutrophils # (auto) 3.54 K/uL (1.4-6.5); Neutrophils % (auto) 57.8 %; Platelet Count 263 K/uL (130-400); RDW Standard Deviation 43.5 fL (36.4-46.3); Red Blood Count 4.99 M/uL (4.2-5.4); White Blood Count 6.12 K/uL (4.8-10.8)
[2019-09-07 12:27] LABS: Albumin Level 3.9 gm/dl (3.4-5.0); BUN Creatinine Ratio 24.2 (10-20); Calcium 9.6 mg/dl (8.5-10.1); Creatinine Clr Calc Pharmacy 92.1 ml/min; Est GFR (African American) 110.4; Est GFR (Non-African American) 95.2
[2019-09-07 12:29] LABS: Albumin Globulin Ratio 0.9 (0.9-2); Globulin 4.4 gm/dl (2.5-4.0); Total Protein 8.3 gm/dl (6.4-8.2)
[2019-09-07 12:41] LABS: Pregnancy Test, Serum Negative (Negative)
[2019-09-07 13:01] LABS: Appearance Urine Cloudy (Clear); Bacteria Urine Automated 1+ (Negative); Blood Urine Negative (Negative); Epithelial Cell Urine Auto >30 /lpf (0-5); Glucose Urine UA Negative (Negative); Ketones Urine Trace (Negative); Leukocyte Esterase Urine Negative (Negative); Nitrite Urine Positive (Negative); Protein Urine Trace (Negative); Specific Gravity Urine 1.034 (1.000-1.030); Urobilinogen Urine Negative (Negative)
[2019-09-07 13:08] LABS: Bilirubin Urine Negative (Negative); Color Urine Amber; Ictotest Urine Negative (Negative)
--- NOTE | 2019-09-07 13:17 | XRay Report ---
XR abdomen 2V w PA chest HISTORY: 19 years-old Female ABD PAIN, N/V, HX OF OBSTRUCTION acute generalized abdominal pain with nausea and vomiting COMPARISON: [facility] 01/07/2019, CT abdomen and pelvis 01/02/2019 TECHNIQUE: PA view of the chest with erect and supine views of the abdomen FINDINGS: Cardiomediastinal and hilar silhouettes are within normal limits. No pneumothorax, pleural effusion, airspace consolidation or overt pulmonary edema. Bones of the chest appear grossly intact. Dilated loops of large and small bowel are noted within the central abdomen and abdominal left upper quadrant demonstrating air-fluid levels. Large bowel measures up to 8.9 cm. Small bowel measures up t o 4.8 cm. Surgical suture material is noted within the lateral left midabdomen. Moderate fecal retent ion of the right hemicolon. There is relative paucity of gas within the lower abdomen and pelvis. No pneumatosis or pneumoperitoneum. No urolith. Bones appear intact. IMPRESSION: Dilated large and small bowel with air-fluid levels are noted within the central abdomen and abdominal left upper quadrant suspicious for obstruction or ileus. No pneumoperitoneum identified . Close follow-up is needed. ACT 112: Negative or not required by law. The above report was generated using voice recognition software. It may contain grammatical, syntax o r spelling errors. Electronically signed by: Augusto Waterman M.D. 09/07/2019 1:15 PM
[2019-09-07 13:20] LABS: Mucus Urine Present (None Prsent)
[2019-09-07 13:21] LABS: RBC Urine Automated 0-4 /hpf (0-4)
[2019-09-07] MEDS ORDERED: cefTRIAXone SODIUM 1,000 MG/50 ML BAG IV STA (13:53)
[2019-09-07] MEDS ORDERED: IOVERSOL 100ml IV PRN (14:20)
--- NOTE | 2019-09-07 14:52 | CT Scan Report ---
CT OF THE ABDOMEN AND PELVIS WITH CONTRAST CLINICAL HISTORY: Abdominal pain. Evaluate for obstruction. COMPARISON STUDY: CT of the abdomen and pelvis January 02, 2019. TECHNIQUE: Following IV administration of 93 mL of Optiray-320, axial images of the abdomen and pelvi s were obtained from the lung bases to the proximal femurs. Images were reviewed in the axial, sagitt al, and coronal planes. IV contrast was administered without complication. Automated exposure contro l was utilized for the study. A dose lowering technique was utilized adhering to the principles of A CINDY. CT DOSE: 335.78 mGy.cm FINDINGS: Trace bilateral pleural effusions are noted. No pneumatosis, free air or portal venous gas is present. The spleen, adrenal glands, kidneys and pancreas are normal. There is no biliary or pancr eatic ductal dilatation. Postoperative findings at the level the splenic flexure of the colon are not ed. There is no evidence for a colonic obstruction. However, the proximal to mid small bowel is fluid -filled and markedly dilated, measuring up to 4.8 cm in caliber. Transition point within the mid abdo men shown on axial image 282 of 486. Several small bowel loops converge on this point. More distal sm all bowel is decompressed. There is mild swirling of the mesentery. Mild mesenteric infiltration and a small amount of ascites. No bowel wall thickening is noted. A dominant follicle within the left ova ry is noted. There are no suspicious osseous lesions. There is no lymphadenopathy. Major vasculature is patent. IMPRESSION: Findings consistent with a high-grade small bowel obstruction with transition point with in the mid abdomen. Markedly dilated, fluid-filled proximal to mid small bowel with decompressed dist al small bowel. Small amount of associated ascites and mesenteric infiltration. ACT 112: Negative or not required by law. Electronically signed by: Calvin Borja M.D. 09/07/2019 2:51 PM
--- NOTE | 2019-09-07 15:27 | History & Physical Report ---
Date of Service September 07, 2019 Assessment & Plan (1) Small bowel obstruction: This is a 19y F with a PMH of large bowel obstruction ultimately requiring an exploratory laparotomy with transverse colon resection with Dr. Trammell who now presents to the ED with a 3 day history of nausea/vomiting an abdominal pain. Workup in the ED with KUB and CT scan revealed findings concerning for a high grade small bowel obstruction with transition point in the mid abdomen and dilated fluid filled proximal to mid small bowel. WBC 6.1. On examination patient diffusely tender to palpation. On review of imaging she also has some concern for dilated large bowel as well. After review of imaging and examination of patient we decided to take the patient to the OR for an exploratory laparotomy and lysis of adhesion, with possible bowel resection. She is NPO with IVF and will be given pre-op abx. We will ask the hospitalist for assistance post operatively. Dr. Small has obtained surgical consent with patient's grandmother. Dr. Small-patient with 2 to 3 days of abdominal pain nausea and vomiting relatively rarely dehydrated CAT scan shows significantly dilated small bowel with incision point in the mid abdomen is likely from adhesions Has a history of transverse colectomy December 2018 what sounds like an internal hernia redundant transverse colon Do not feel comfortable with watchful waiting in this situation with her severely dilated small bowel-I feel we should proceed with Laparotomy lysis of adhesions possible bowel resection possible stoma I have discussed this with the patient and her grandmother-we will proceed as soon as possible History of Present Illness Primary Care Provider: PT DECLINED This is a 19y F with a PMH of large bowel obstruction ultimately requiring an exploratory laparotomy with transverse colon resection with Dr. Trammell who now presents to the ED with a 3 day history of nausea/vomiting an abdominal pain. Patient reports that the pain does not feel the same as when she was here back in December. As pain and symptoms persisted she came to the ED for further evaluation. In the ED workup with a KUB showed dilated large and small bowel with air-fluid levels noted in central abdomen and CT scan showed findings concerning for a high-grade small bowel obstruction with transition point within the mid abdomen, markedly dilated, fluid-filled proximal to mid small bowel with decompressed distal small bowel. Labs reveal a WBC of 6. Patient slightly tachycardic. Patient denies any fevers/chills, diarrhea or constipation. Believes her last BM was this AM. Surgery was consulted for evaluation. 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 Beliefs That Will Affect Care: None marital status: Single Current Living Situation: Family Current Living Situation Comment: Grandmother current occupational status: employed current occupation: works at [employer] Feels Safe at Home: Yes Smoking Status: Current some day smoker Tobacco Type: cigarettes ; Hx Alcohol Use: No Hx Substance Use: Yes substance use type: marijuana Review of Systems Constitutional: no fever and no chills Respiratory: no dyspnea Gastrointestinal: + abdominal pain, + nausea and + vomiting; no change in bowel habits Physical Exam Physical Exam: awake/alert Constitutional: appears uncomfortable in pain Respiratory: normal respiratory effort Gastrointestinal (Abdomen): Inspection/Auscultation: + abdominal surgical scar (midline scar from prior exlap.); abdomen not distended Percussion/Palpation: + abdomen tender (diffusely tender throughout abdomen) and abdomen soft Results & Data Results & Data ([facility]) Vital Signs (Past 12 Hours) Vital Signs Temp Pulse Pulse Resp BP BP Pulse Ox 09/07/19 14:10 93 H 17 111/62 95 09/07/19 11:20 36.6 C 119 H 20 106/76 97 XR abdomen 2V w PA chest HISTORY: 19 years-old Female ABD PAIN, N/V, HX OF OBSTRUCTION acute generalized abdominal pain with nausea and vomiting COMPARISON: [facility] 01/07/2019, CT abdomen and pelvis 01/02/2019 TECHNIQUE: PA view of the chest with erect and supine views of the abdomen FINDINGS: Cardiomediastinal and hilar silhouettes are within normal limits. No pneumothorax, pleural effusion, airspace consolidation or overt pulmonary edema. Bones of the chest appear grossly intact. Dilated loops of large and small bowel are noted within the central abdomen and abdominal left upper quadrant demonstrating air-fluid levels. Large bowel measures up to 8.9 cm. Small bowel measures up to 4.8 cm. Surgical suture material is noted within the lateral left midabdomen. Moderate fecal retention of the right hemicolon. There is relative paucity of gas within the lower abdomen and pelvis. No pneumatosis or pneumoperitoneum. No urolith. Bones appear intact. IMPRESSION: Dilated large and small bowel with air-fluid levels are noted within the central abdomen and abdominal left upper quadrant suspicious for obstruction or ileus. No pneumoperitoneum identified. Close follow-up is needed. ACT 112: Negative or not required by law. The above report was generated using voice recognition software. It may contain grammatical, syntax or spelling errors. Electronically signed by: Augusto Waterman M.D. 09/07/2019 1:[address] OF THE ABDOMEN AND PELVIS WITH CONTRAST CLINICAL HISTORY: Abdominal pain. Evaluate for obstruction. COMPARISON STUDY: CT of the abdomen and pelvis January 02, 2019. TECHNIQUE: Following IV administration of 93 mL of Optiray-320, axial images of the abdomen and pelvis were obtained from the lung bases to the proximal femurs. Images were reviewed in the axial, sagittal, and coronal planes. IV contrast was administered without complication. Automated exposure control was utilized for the study. A dose lowering technique was utilized adhering to the principles of ALARA. CT DOSE: 335.78 mGy.cm FINDINGS: Trace bilateral pleural effusions are noted. No pneumatosis, free air or portal venous gas is present. The spleen, adrenal glands, kidneys and pancreas are normal. There is no biliary or pancreatic ductal dilatation. Postoperative findings at the level the splenic flexure of the colon are noted. There is no evidence for a colonic obstruction. However, the proximal to mid small bowel is fluid-filled and markedly dilated, measuring up to 4.8 cm in caliber. Transition point within the mid abdomen shown on axial image 282 of 486. Several small bowel loops converge on this point. More distal small bowel is decompressed. There is mild swirling of the mesentery. Mild mesenteric infiltration and a small amount of ascites. No bowel wall thickening is noted. A dominant follicle within the left ovary is noted. There are no suspicious osseous lesions. There is no lymphadenopathy. Major vasculature is patent. IMPRESSION: Findings consistent with a high-grade small bowel obstruction with transition point within the mid abdomen. Markedly dilated, fluid-filled proximal to mid small bowel with decompressed distal small bowel. Small amount of associated ascites and mesenteric infiltration. ACT 112: Negative or not required by law. Electronically signed by: Calvin Borja M.D. 09/07/2019 2:51 PM PG Care Time/CCT Total # of Minutes Spent Total Time Spent with Patient: Total time spent is greater than 50% in coordination of care (as documented) at patient's floor/unit and/or counseling patient: Coding Level of Care Code 19587 Initial Inpt Care Lvl 3 Diagnoses Small bowel obstruction K56.609
[2019-09-07] MEDS ORDERED: LACTATED RINGER'S 1,000 ML IV SCH (15:30)
--- NOTE | 2019-09-07 15:45 | Anesthesiology Consultation ---
Date of Service September 07, 2019 Assessment & Plan Chart Review Chart Review: Acceptable Risk for Surgery and Patient NOT seen in Pre Admission Testing Consults Requested none ASA [id number] Proposed Anesthesia Anesthesia Type: General History Surgery Operation Date: 09/07/19 09:35 Proposed Procedures p Abdomen Exploratory, Lysis Adhesions Possible Bowel Resection - Esau Small MD, FACS Height/Weight Height: 5 ft 2 in Weight: 67.4 kg Allergies Allergy/AdvReac Type Severity Reaction Status Date / Time No Known Allergies Allergy Verified 09/07/19 12:24 Medications Home Medications Medication Instructions Recorded Confirmed Last Taken No Known Home Medications 09/07/19 09/07/19 Unknown Active Medications Generic Name Dose Route Start Last Admin Trade Name Freq PRN Reason Stop Dose Admin Ioversol 93 ml 09/07/19 14:20 09/07/19 14:20 Optiray 320 100ml IV 09/11/19 14:19 93 ml ONCE PRN Administration Interaction Checking Past Medical History Medical History Anemia No significant past medical history Tobacco abuse Exercise / Class Metabolic Activity 1 > 8 Run/Swim/Ski/Tennis Past Surgical History Surgical History No significant past surgical history Past Anesthesia History No Hx of Anesthesia Complications and No Family Hx of Anesthesia Complications History of PONV No Hx of PONV and No Hx of Motion Sickness Social History Smoking Status: Current some day smoker tobacco type: cigarettes Hx Alcohol Use: No Hx Substance Use: Yes substance use type: marijuana Physical Exam Vital Signs Last Vital Signs Temp 36.6 C 09/07/19 11:20 Pulse 93 H 09/07/19 14:10 Resp 17 09/07/19 14:10 BP 111/62 09/07/19 14:10 Pulse Ox 95 09/07/19 14:10 Testing Laboratory Results 09/07/19 11:37 09/07/19 11:37 Urine Color [place] 09/07/19 12:42 Urine Appearance Cloudy (Clear) A 09/07/19 12:42 Urine pH 5.0 (4.5-7.5) 09/07/19 12:42 Ur Specific [place] 1.034 (1.000-1.030) H 09/07/19 12:42 Urine Protein Trace (Negative) H 09/07/19 12:42 Urine Glucose (UA) Negative (Negative) 09/07/19 12:42 Urine Ketones Trace (Negative) H 09/07/19 12:42 Urine Nitrite Positive (Negative) A 09/07/19 12:42 Ur Leukocyte Esterase Negative (Negative) 09/07/19 12:42 Urine WBC (Auto) 5-10 /hpf (0-5) H 09/07/19 12:42 Urine RBC (Auto) 0-4 /hpf (0-4) 09/07/19 12:42 U Hyaline Cast (Auto) 1-5 /lpf (0-5) 09/07/19 12:42 U Epithel Cells (Auto) >30 /lpf (0-5) H 09/07/19 12:42 Urine Bacteria (Auto) 1+ (Negative) H 09/07/19 12:42
--- NOTE | 2019-09-07 16:16 | Communication Note ---
Date of Service: September 07, 2019 This is an emergency. We will adhere to the 20/20 min. rule in the OR, in lieu of rapid covid test.
[2019-09-07] MEDS ORDERED: fentaNYL citrate 100 MCG/2 ML VIAL ONE ×2 (16:46→17:47)
[2019-09-07] MEDS ORDERED: ROCURONIUM BROMIDE 10 MG/ML 5 ML VIAL IV ONE (16:46)
[2019-09-07] MEDS ORDERED: PROPOFOL IV EMULSION 10 MG/ML 20 ML VIAL IV ONE (16:46)
[2019-09-07] MEDS ORDERED: MIDAZOLAM HCL 1 MG/ML 2ML VIAL ONE (16:46)
[2019-09-07] MEDS ORDERED: ONDANSETRON INJ 2 MG/ML 2 ML VIAL ONE (16:46)
[2019-09-07] MEDS ORDERED: LIDOCAINE HCL 2% 2 ML VIAL/AMP(20MG/ML) INFIL ONE (16:46)
[2019-09-07] MEDS ORDERED: HYDROmorphone INJ 1 MG/ML SYRINGE IV PRN (17:27)
[2019-09-07] MEDS ORDERED: ePHEDrine sulfate 50 MG/ML AMP IV PRN (17:27)
[2019-09-07] MEDS ORDERED: fentaNYL citrate 100 MCG/2 ML VIAL IV PRN (17:27)
[2019-09-07] MEDS ORDERED: PROMETHAZINE HCL 12.5 MG in SODIUM CHLORIDE 0.9% 50 ML IV PRN ×2 (17:27→20:10)
[2019-09-07] MEDS ORDERED: FLUMAZENIL 0.1 MG/1 ML 10 ML VIAL IV PRN (17:27)
[2019-09-07] MEDS ORDERED: ATROPINE SULFATE 0.1 MG/ML 10ML SYR IV PRN (17:27)
[2019-09-07] MEDS ORDERED: NALOXONE HCL 0.4 MG/1 ML VIAL/CARP IV PRN (17:27)
[2019-09-07] MEDS ORDERED: ONDANSETRON INJ 2 MG/ML 2 ML VIAL IV PRN ×2 (17:27→20:10)
[2019-09-07] MEDS ORDERED: GLYCOPYRROLATE 0.2 MG/ML VIAL ONE (18:15)
[2019-09-07] MEDS ORDERED: NEOSTIGMINE METHYLSULFATE 5 MG/5 ML SYR ONE (18:15)
[2019-09-07] MEDS ORDERED: SUCCINYLCHOLINE 100MG/5ML SYR IV ONE (18:15)
[2019-09-07] MEDS ORDERED: SUCCINYLCHOLINE CHLORIDE 20 MG/ML 10 ML VIAL IV ONE (18:16)
[2019-09-07] MEDS ORDERED: ACETAMINOPHEN 1,000 MG/100 ML VIAL IV ONE (18:54)
--- NOTE | 2019-09-07 18:54 | Post Operative Brief Note ---
PG Immediate Post Op with CF Date of Surgery September 07, 2019 Pre & Post Diagnosis Operation Date: 09/07/19 09:35 Pre-Op Diagnosis: Small Bowel Obstruction Post-Op Diagnosis: Small Bowel Obstruction, severe adhesions I identified the patient and participated in the time-out.: Yes Procedure Operation Date: 09/07/19 09:35 Actual Procedures p Exploratory Laparotomy, Lysis Adhesions(Not Applicable) - Esau Small MD, FACS Surgeon Esau Small MD, FACS Attractions Associate Columba Fernandez Estimated Blood Loss 20 Findings Consistent with Post-Op Diagnosis Specimens Specimen Description: None per surgeon. Drains Jimenez Catheter (16fr inserted by Noel Bright; used new jimenez for second attempt.) and Cipriano Drain (03/31")
[2019-09-07] MEDS ORDERED: DEXAMETHASONE SOD INJ 4 MG/ML VIAL ONE (19:15)
--- NOTE | 2019-09-07 19:27 | Operative Report (OR) ---
DATE OF OPERATION: 09/07/2019 NAME OF OPERATION: Laparotomy, extensive enterolysis of adhesions. STAFF SURGEON: Esau Small MD. ACTIVITIES DIRECTOR: Rhonda Fernnadez PA-C. ANESTHESIA: General. DESCRIPTION OF PROCEDURE: The patient was brought in the operating room and placed on the operating table in supine position. Her abdomen was prepped and draped in usual fashion. Briggs catheter and nasogastric tube were placed. She had a previous scar above and below the umbilicus. This was excised. The incision was extended a little bit cephalad and caudad carrying dissection down through scar tissue. Apparently had a history of prior wound infection. We were able to enter the abdominal cavity. She did have adhesions of the small bowel to the anterior abdominal wall. These were taken down. It was obvious that her small bowel was obstructed. It was severely dilated over 6 cm. We could see decompressed small bowel in the pelvis; however, it was somewhat difficult to approach because she had extensive adhesions from the ligament of Treitz distally. Initially, I began lysing adhesions and proceeded proximally identifying the ligament of Treitz and then proceeding distally to the decompressed colon. It was apparent that the patient had had a significant adhesive band obstructing the small bowel and then she had other severe adhesions more proximal diffusely. These were all taken down. The area of initial obstruction was opened. It was patent. It was easy to milk fluid through it. The patient's small bowel was so dilated that I did not feel closure would be easy; therefore, we decompressed the small bowel into a basin. It was all liquid stool and gas and then we closed the transverse enterotomy using a full thickness 2-0 chromic running suture and then seromuscular layer of 3-0 silk interrupted. At this point, the abdomen was irrigated with warm saline and some antibiotic solution and then the fascia was closed using both running and interrupted #1 PDS suture. Quarter inch Cipriano drain placed into the subcutaneous space, secured to the skin using 4-0 nylon suture. Subcutaneous tissue reapproximated using 2-0 plain suture and then the skin reapproximated using marco. We did place some 4-0 nylon sutures at the umbilicus. The NG tube was checked prior to closure and in good position in the stomach. There was approximately 600-800 mL of fluid in the stomach. Dressing applied and patient was transferred to recovery room in stable condition. My assistant account executive helped with prepping, draping, lysis of adhesions and closure of the wound. I attest to the content of the Intraoperative Record and any orders documented therein. Any exception s are noted below.
--- NOTE | 2019-09-07 19:30 | Anesthesiology Progress Note ---
Date of Service September 07, 2019 Anesthesia Post Procedure Vital Signs Vital Signs: Temp Pulse Pulse Pulse Resp BP BP 09/07/19 19:21 36.5 C 113 H 21 110/71 09/07/19 16:35 37.0 C 95 H 18 09/07/19 16:10 93 H 17 09/07/19 14:10 93 H 17 09/07/19 11:20 36.6 C 119 H 20 106/76 BP Pulse Ox 09/07/19 19:21 100 09/07/19 16:35 111/62 96 09/07/19 16:10 108/63 94 09/07/19 14:10 111/62 95 09/07/19 11:20 97 Pain Intensity Abdomen: Pain Intensity: 6 Transfer of Care Handoff Completed per policy Notes Mental Status: alert / awake / arousable Patient Amnestic to Procedure: Yes Nausea / Vomiting: adequately controlled Pain: adequately controlled Airway Patency, RR, SpO2: stable & adequate BP & HR: stable & adequate Hydration State: stable & adequate Anesthetic Complications: no major complications apparent
[2019-09-07] MEDS ORDERED: cefTRIAXone SODIUM 1,000 MG in DEXTROSE 5% 50 ML IV SCH (20:10)
[2019-09-07] MEDS ORDERED: PROMETHAZINE HCL 25 MG in SODIUM CHLORIDE 0.9% 50 ML IV PRN (20:10)
[2019-09-07] MEDS: NSS + 20MEQ KCL 20 MEQ/1,000 ML BAG IV SCH (21:04)
[2019-09-07] MEDS ORDERED: PERMETHRIN 59 ML LIQUID BTL TOP ONE (22:58)
[2019-09-07] MEDS ORDERED: PERMETHRIN 5% CR 60 GM TUBE EXT ONE (23:30)
--- NOTE | 2019-09-07 23:46 | Hospitalist Consultation ---
Date of Consultation September 07, 2019 Assessment & Plan (1) Small bowel obstruction: 19 yo F with PMH of large bowel obstruction in Dec 2018 that required exploratory laparotomy with transverse colon resection presents with abd pain and N/V found to have SBO on CT Abd/Pelvis. SBO -admit to med surg -Abd/Pelvis CT: Findings consistent with a high-grade small bowel obstruction with transition point within the mid abdomen. Markedly dilated, fluid-filled proximal to mid small bowel with decompressed distal small bowel -s/p Laparotomy with extensive enterolysis of adhesions -maintain NPO. Likely graduation of diet starting tomorrow -maintain NGT to low, intermittent suction -cont IVF NSS with 20meq KCl at 125 mls/hr -electrolyte repleation as needed -pain management with IV Dilaudid 1mg q3h prn. Cautious use of narcotics for pain control moving forward -IV Zofran/Promethazine prn for any nausea -appreciate ongoing surgical assistance Concern for UTI -with previous UTI last admission Dec 2018 that grew pansensitive E. Coli -UA: Cloudy appearance, Positive nitrite, Neg LE, 5-10 WBC, 1+ Bacteria, >30 epith cell -Urine cx pending -pt is otherwise asymptomatic, however, IV Rocephin was already started. Can likely dc in AM Head Lice -permethrin ordered. Per pharmacy, this is not the true lice kit formulation as we do not currently have in stock -contact precautions ordered FEN/GI: NSS with 20meq KCl at 125. NPO DVT Prophylaxis: Heparin SQ Full Code Dispo: Med Surg Supervising Physician Co-Signing Physician Notes Attending addendum: I have physically seen this patient, have supervised the medical residents activities, and agree with the H&P unless as otherwise noted. Assessment and Plan: SBO, status post exploratory lap with transverse colon resection- Seen postoperatively is medically stable. NSS + KCl 20 mEq 125 mL's per hour. Serial laboratories. Zofran 4 mg IV every 6 hours as needed. Promethazine 25 mg IV every 6 hours PRN Famotidine 20 mg IV every 12 hours. Head lice- Permethrin as ordered We will follow along during hospital stay. Remaining orders and notations as noted. History of Present Illness Reason for Consultation: post op SBO Requesting Physician: Geovanny Attending Physician: Esau Small MD, FACS History of Present Illness 19 yo F with PMH of large bowel obstruction in Dec 2018 that required exploratory laparotomy with transverse colon resection presents with 3 day h/o epigastric abd pain with 10 episodes of emesis during this time frame. Was only tolerating PO liquids . No preceding fever, chills, diarrhea, urinary sxs. No recent travel, sick contacts. Last BM this AM that was well formed, no blood noticed. This abd pain did not feel similar to LBO incidence. Abd pain became unbearable so pt presented to ED. Chest/Abd XR: Dilated large and small bowel with air-fluid levels are noted within the central abdomen and abdominal left upper quadrant suspicious for obstruction or ileus. No pneumoperitoneum identified Abd/Pelvis CT: Findings consistent with a high-grade small bowel obstruction with transition point within the mid abdomen. Markedly dilated, fluid-filled proximal to mid small bowel with decompressed distal small bowel. Small amount of associated ascites and mesenteric infiltration Labs largely unremarkable. Dr. Small of sx was consulted and did not feel comfortable with watchful waiting given severely dilated small bowel, so opted to proceed with laparotomy with lysis of adhesions. Pt seen post-op resting comfortably without any acute concerns or complaints. Allergies Allergy/AdvReac Type Severity Reaction Status Date / Time No Known Allergies Allergy Verified 09/07/19 12:24 Home Medications Home Medications Medication Instructions Recorded Confirmed Type No Known Home Medications 09/07/19 09/07/19 History Patient History Medical History Anemia No significant past medical history Tobacco abuse Surgical History No significant past surgical history Social History Preferred Language: [place] Communication Ability: Effective Dust Mixer Required: No Beliefs That Will Affect Care: None marital status: Single Current Living Situation: Family Current Living Situation Comment: Grandmother current occupational status: employed current occupation: works at [employer] Other Information That Helps Us Care for You: No Feels Safe at Home: Yes Safety Concerns: Feels Safe At This Time Smoking Status: Current every day smoker Tobacco Type: cigarettes ; Do You Dip or Chew Tobacco: No ; Hx Alcohol Use: No Hx Substance Use: No Review of Systems Review of Systems: All systems reviewed & are unremarkable except as noted in HPI & below Physical Exam Constitutional: WD/WN, vitals as above + not well groomed (head lice) Eyes: PERRL, conjunctivae normal, anicteric sclerae ENMT: external ear and nose normal, oropharynx normal Respiratory: normal respiratory effort, lungs clear to auscultation Cardiovascular: Rate/Rhythm: regular rhythm and + tachycardic Gastrointestinal (Abdomen): Inspection/Auscultation: + abdominal surgical scar (midline scar from prior exlap); abdomen not distended Percussion/Palpation: + abdomen tender (mild TTP greatest in epigastric); no guarding Skin: no rashes, warm and dry Psychiatric: A+Ox3, euthymic affect Results & Data Results & Data ([facility]) Vital Signs (Past 12 Hours) Vital Signs Temp Pulse Pulse Resp BP BP Pulse Ox 09/07/19 22:55 36.9 C 110 H 16 91/59 L 97 09/07/19 22:08 36.7 C 108 H 14 110/68 97 09/07/19 21:00 37 C 98 H 14 99/66 L 97 09/07/19 20:00 37.1 C 101 H 14 101/65 95 09/07/19 19:40 37.0 C 100 H 17 104/60 93 09/07/19 19:30 94 H 15 113/57 L 98 09/07/19 19:21 36.5 C 113 H 21 110/71 100 09/07/19 16:35 37.0 C 95 H 18 111/62 96 09/07/19 16:10 93 H 17 108/63 94 09/07/19 14:10 93 H 17 111/62 95 Laboratory Results Laboratory Results - last 24 hr 09/07/19 09/07/19 09/07/19 11:37 11:37 11:37 WBC 6.12 RBC 4.99 Hgb 14.8 Hct 43.0 MCV 86.2 MCH 29.7 MCHC 34.4 RDW Std Deviation 43.5 RDW Coeff of Maxi 14.0 Plt Count 263 MPV 10.6 H Immature Gran % (Auto) 0.2 Neut % (Auto) 57.8 Lymph % (Auto) 24.2 [place] % (Auto) 14.5 Eos % (Auto) 2.8 Baso % (Auto) 0.5 Immature Gran # (Auto) 0.01 Neut # (Auto) 3.54 Lymph # (Auto) 1.48 [place] # (Auto) 0.89 H Eos # (Auto) 0.17 Baso # (Auto) 0.03 Sodium 137 Potassium 4.0 Chloride 105 Carbon Dioxide 26 Anion Gap 6.0 BUN 21 H Creatinine 0.87 Est Cr Clr Drug Dosing 92.1 Est GFR ( Amer) 110.4 Est GFR (Non-Af Amer) 95.2 BUN/Creatinine Ratio 24.2 H Glucose 119 H Calcium 9.6 Total Bilirubin 1.0 AST 17 ALT 29 Alkaline Phosphatase 97 Total Protein 8.3 H Albumin 3.9 Globulin 4.4 H Albumin/Globulin Ratio 0.9 Lipase 36 L HCG, Qual Negative Urine Color Urine Appearance Urine pH Ur Specific [place] Urine Protein Urine Glucose (UA) Urine Ketones Urine Blood Urine Nitrite Urine Bilirubin Urine Urobilinogen Ur Leukocyte Esterase Urine WBC (Auto) Urine RBC (Auto) U Hyaline Cast (Auto) U Epithel Cells (Auto) Urine Bacteria (Auto) Urine Mucus 09/07/19 12:42 WBC RBC Hgb Hct MCV MCH MCHC RDW Std Deviation RDW Coeff of Maxi Plt Count MPV Immature Gran % (Auto) Neut % (Auto) Lymph % (Auto) [place] % (Auto) Eos % (Auto) Baso % (Auto) Immature Gran # (Auto) Neut # (Auto) Lymph # (Auto) [place] # (Auto) Eos # (Auto) Baso # (Auto) Sodium Potassium Chloride Carbon Dioxide Anion Gap BUN Creatinine Est Cr Clr Drug Dosing Est GFR ( Amer) Est GFR (Non-Af Amer) BUN/Creatinine Ratio Glucose Calcium Total Bilirubin AST ALT Alkaline Phosphatase Total Protein Albumin Globulin Albumin/Globulin Ratio Lipase HCG, Qual Urine Color [place] Urine Appearance Cloudy A Urine pH 5.0 Ur Specific [place] 1.034 H Urine Protein Trace H Urine Glucose (UA) Negative Urine Ketones Trace H Urine Blood Negative Urine Nitrite Positive A Urine Bilirubin Negative Urine Urobilinogen Negative Ur Leukocyte Esterase Negative Urine WBC (Auto) 5-10 H Urine RBC (Auto) 0-4 U Hyaline Cast (Auto) 1-5 U Epithel Cells (Auto) >30 H Urine Bacteria (Auto) 1+ H Urine Mucus Present A Medications Administered Current Inpatient Medications Heparin Sodium (Porcine) (Heparin Sodium (Porcine)) 5,000 units SQ Q12 DENICE Stop: 10/08/19 08:59 Hydromorphone HCl (Dilaudid) 0.5 mg IV Q3HWA PRN PRN Reason: Pain Stop: 09/21/19 20:09 Hydromorphone HCl (Dilaudid) 1 mg IV Q3HWA PRN PRN Reason: Pain Stop: 09/21/19 20:09 Promethazine HCl 12.5 mg/ (Sodium Chloride) 50.5 mls @ 204 mls/hr IV Q6H PRN PRN Reason: Nausea And Vomiting Stop: 10/07/19 20:09 Promethazine HCl 25 mg/ Sodium (Chloride) 51 mls @ 204 mls/hr IV Q6H PRN PRN Reason: Nausea And Vomiting Stop: 10/07/19 20:09 Potassium Chloride/Sodium Chloride (Normal Saline W/20 Meq Kcl) 20 meq in 1,000 mls @ 125 mls/hr IV .Q8H DENICE Stop: 10/07/19 20:29 Last Admin: 09/07/19 21:04 Dose: 125 mls/hr Documented by: Ceftriaxone Sodium 1,000 mg/ (Dextrose) 50 mls @ 100 mls/hr IV Q24H DENICE; Protocol Stop: 09/13/19 13:59 Ondansetron HCl (Zofran) 4 mg IV 4XDQ4H PRN PRN Reason: Nausea Stop: 10/07/19 20:09 Resident Activity Tracking Resident Involvement: Resident Care Provided Care Provided: Adult Hospital Medicine
[2019-09-08] MEDS ORDERED: PERMETHRIN 5% CR 60 GM TUBE EXT ONE ×3 (01:00→22:00)
[2019-09-08] MEDS: NSS + 20MEQ KCL 20 MEQ/1,000 ML BAG IV SCH ×3 (04:47→21:35)
[2019-09-08] MEDS ORDERED: ACETAMINOPHEN 1,000 MG/100 ML VIAL IV PRN (05:57)
--- NOTE | 2019-09-08 06:51 | Surgery Progress Note ---
Date of Service September 08, 2019 Assessment & Plan (1) Small bowel obstruction: s/p laparotomy, ADY- extensive cont NG IV NSS bolus treatment for lice check labs concern for postop ileus Results & Data Vital Signs (Past 12 Hours) Vital Signs Temp Pulse Pulse Resp BP Pulse Ox 09/07/19 22:55 36.9 C 110 H 16 91/59 L 97 09/07/19 22:08 36.7 C 108 H 14 110/68 97 09/07/19 21:00 37 C 98 H 14 99/66 L 97 09/07/19 20:00 37.1 C 101 H 14 101/65 95 09/07/19 19:40 37.0 C 100 H 17 104/60 93 09/07/19 19:30 94 H 15 113/57 L 98 09/07/19 19:21 36.5 C 113 H 21 110/71 100 PG Care Time/CCT Total # of Minutes Spent Total Time Spent with Patient: Total time spent is greater than 50% in coordination of care (as documented) at patient's floor/unit and/or counseling patient: Coding Level of Care Code None Diagnoses Small bowel obstruction K56.609
[2019-09-08] MEDS ORDERED: SODIUM CHLORIDE 0.9% 500 ML IV SCH (07:00)
[2019-09-08 07:11] LABS: Albumin Level 2.5 gm/dl (3.4-5.0); BUN Creatinine Ratio 16.4 (10-20); Calcium 7.9 mg/dl (8.5-10.1); Creatinine Clr Calc Pharmacy 127.2 ml/min; Est GFR (African American) 148.6; Est GFR (Non-African American) 128.2; Magnesium 2.1 mg/dl (1.8-2.4); Potassium 4.5 mmol/L (3.5-5.1)
[2019-09-08 07:14] LABS: Albumin Globulin Ratio 0.8 (0.9-2); Bilirubin,Total 1.4 mg/dl (0.2-1); Globulin 3.3 gm/dl (2.5-4.0); Total Protein 5.8 gm/dl (6.4-8.2)
[2019-09-08 08:03] LABS: Hematocrit (blood only) 41.7 % (37-47); Hemoglobin 13.3 g/dL (12.0-16.0); Mean Corpuscular Hemoglobin 28.8 pg (25-34); Mean Corpuscular Hgb Conc 31.9 g/dL (32-36); Mean Corpuscular Volume 90.3 fL (80-100); RDW Coefficient of Variation 14.2 % (11.5-14.5); RDW Standard Deviation 46.7 fL (36.4-46.3); Red Blood Count 4.62 M/uL (4.2-5.4); White Blood Count 5.88 K/uL (4.8-10.8)
[2019-09-08 08:18] LABS: Basophils # (auto) 0.02 K/uL (0-0.2); Basophils % (auto) 0.3 %; Eosinophils # (auto) 0.02 K/uL (0-0.5); Eosinophils % (auto) 0.3 %; Immature Granulocytes # (auto) 0.03 K/uL (0.00-0.02); Immature Granulocytes % (auto) 0.5 %; Lymphocytes # (auto) 0.95 K/uL (1.2-3.4); Lymphocytes % (auto) 16.2 %; Mean Platelet Volume 10.8 fL (7.4-10.4); Monocytes # (auto) 0.49 K/uL (0.11-0.59); Monocytes % (auto) 8.3 %; Neutrophils # (auto) 4.37 K/uL (1.4-6.5); Neutrophils % (auto) 74.4 %; Platelet Count 115 K/uL (130-400); Platelet Estimate Decreased (Normal); RBC Morphology Unremarkable
[2019-09-08] MEDS: HEPARIN SOD 5,000 UNIT/0.5 ML VIAL SQ SCH ×2 (09:07→21:35)
[2019-09-08] MEDS ORDERED: PERMETHRIN 59 ML LIQUID BTL TOP SCH (13:00)
[2019-09-08] MEDS ORDERED: LICE KILLING SHAMPOO TOP SCH (13:00)
[2019-09-08] MEDS: cefTRIAXone SODIUM 1,000 MG in DEXTROSE 5% 50 ML IV SCH (13:27)
--- NOTE | 2019-09-08 17:12 | Hospitalist Progress Note ---
Date of Service September 08, 2019 Assessment & Plan (1) Small bowel obstruction: -Abd/Pelvis CT: Findings consistent with a high-grade small bowel obstruction with transition point within the mid abdomen. Markedly dilated, fluid-filled proximal to mid small bowel with decompressed distal small bowel -s/p Laparotomy 09/06 with extensive enterolysis of adhesions -maintain NPO and NG tube per surgery -cont IVF NSS with 20meq KCl at 125 mls/hr -pain management per primary -IV Zofran/Promethazine prn for any nausea (2) Head lice: Treated with permethrin 09/06 (3) Thrombocytopenia: Platelets 115,000 today, repeat level tomorrow (4) Elevated bilirubin: Bilirubin 1.4 No ductal dilation on CT Repeat level am (5) Hypophosphatemia: Mild, 2.0 - recheck am Will check mag am as well Admission and Anticipated Discharge Date Admission Date: September 07, 2019 Subjective Ms. Reynoso denies any discomfort at the time of my assessment. NG tube was in place, draining green fluid. She denies abdominal pain. ROS Constitutional: no chills, aches, sweats or fever Respiratory: no sob,cough, sputum, or wheezing Cardiac: no chest pain, palpitations, edema, orthopnea or lightheadedness GI: no abdominal pain, nausea, vomiting, diarrhea or constipation : no dysuria or hesitancy Extremities: no joint pain or weakness Skin: no rash All other systems reviewed and negative Physical Exam Physical Exam: General: no distress Eyes: normal inspection, PERLL Respiratory: chest non tender, clear to auscultation, normal breath sounds, no respiratory distress, no accessory muscle use Cardiac: regular rate and rhythm, no rub or gallop, no murmur, no edema, no jvd GI/: active bowel sounds, no abd pain or tenderness, soft, non distended Extremities: normal range of motion, normal strength, non tender Neuro/Psych: alert and oriented x 3, normal mood and affect Skin: normal color, dry Results & Data Results & Data ([facility]) Vital Signs (Past 12 Hours) Vital Signs Temp Pulse Resp BP Pulse Ox 09/08/19 15:12 36.5 C 88 16 93/62 L 95 09/08/19 08:01 37.2 C 109 H 16 105/71 96 PG Care Time/CCT Total # of Minutes Spent Total Time Spent with Patient: Total time spent is greater than 50% in coordination of care (as documented) at patient's floor/unit and/or counseling patient: Coding Level of Care Code 83291 Subseq Hosp Care Lvl 3 Diagnoses Small bowel obstruction K56.609 Head lice B85.0 Thrombocytopenia D69.6 Elevated bilirubin R17 Hypophosphatemia E83.39
--- NOTE | 2019-09-09 00:54 | Billing Data ---
Date of Service September 09, 2019 Coding Level of Care Code 02563 Inpt Consult Level 3
[2019-09-09] MEDS: NSS + 20MEQ KCL 20 MEQ/1,000 ML BAG IV SCH (05:26)
[2019-09-09 05:30] LABS: Basophils # (auto) 0.02 K/uL (0-0.2); Basophils % (auto) 0.3 %; Eosinophils # (auto) 0.32 K/uL (0-0.5); Eosinophils % (auto) 5.5 %; Hemoglobin 10.6 g/dL (12.0-16.0); Immature Granulocytes # (auto) 0.03 K/uL (0.00-0.02); Immature Granulocytes % (auto) 0.5 %; Lymphocytes # (auto) 1.29 K/uL (1.2-3.4); Mean Corpuscular Hemoglobin 28.8 pg (25-34); Mean Corpuscular Hgb Conc 32.1 g/dL (32-36); Mean Corpuscular Volume 89.7 fL (80-100); Monocytes # (auto) 0.39 K/uL (0.11-0.59); Monocytes % (auto) 6.6 %; Neutrophils # (auto) 3.82 K/uL (1.4-6.5); Neutrophils % (auto) 65.1 %; Platelet Count 163 K/uL (130-400); RDW Standard Deviation 46.5 fL (36.4-46.3); Red Blood Count 3.68 M/uL (4.2-5.4); White Blood Count 5.87 K/uL (4.8-10.8)
[2019-09-09 06:00] LABS: Alanine Aminotransferase 26 U/L (12-78); Albumin Level 2.2 gm/dl (3.4-5.0); Aspartate Aminotransferase 30 U/L (15-37); Blood Urea Nitrogen 8 mg/dl (7-18); Calcium 8.2 mg/dl (8.5-10.1); Carbon Dioxide 23 mmol/L (21-32); Chloride 112 mmol/L (98-107); Creatinine Clr Calc Pharmacy 222.5 ml/min; Est GFR (African American) > 150.0; Est GFR (Non-African American) > 150.0; Glucose 89 mg/dl (70-99); Magnesium 2.2 mg/dl (1.8-2.4); Potassium 4.6 mmol/L (3.5-5.1); Sodium 140 mmol/L (136-145)
[2019-09-09 06:14] LABS: Albumin Globulin Ratio 0.6 (0.9-2); Alkaline Phosphatase 68 U/L (45-117); Bilirubin,Total 0.5 mg/dl (0.2-1); Globulin 3.5 gm/dl (2.5-4.0); Phosphorus 1.1 mg/dl (2.5-4.9); Total Protein 5.7 gm/dl (6.4-8.2)
[2019-09-09] MEDS ORDERED: SODIUM PHOSPHATE 3 MMOL/1 ML INFUSION IV STA (06:22)
--- NOTE | 2019-09-09 06:24 | Communication Note ---
Date of Service: September 09, 2019 Notified of critical lab of phosphorus of 1.1. Replaced with NaPhos 40mmol per protocol since K+>4
--- NOTE | 2019-09-09 06:32 | Surgery Progress Note ---
Date of Service September 09, 2019 Assessment & Plan (1) Small bowel obstruction: vitals stable bilious NG output adeq ur outpt cont NG Atbx ice only Results & Data Vital Signs (Past 12 Hours) Vital Signs Temp Pulse Resp BP 09/08/19 23:33 36.8 C 84 16 97/62 L 09/08/19 18:55 96 H 16 107/74 PG Care Time/CCT Total # of Minutes Spent Total Time Spent with Patient: Total time spent is greater than 50% in coordination of care (as documented) at patient's floor/unit and/or counseling patient: Coding Level of Care Code None Diagnoses Small bowel obstruction K56.609
[2019-09-09] MEDS ORDERED: SODIUM PHOSPHATE 40 MMOL in SODIUM CHLORIDE 0.9% 1000ML 1,000 ML IV ONE (06:45)
[2019-09-09] MEDS ORDERED: POTASSIUM PHOS 3 MMOL/1 ML INFUSION IV STA (08:00)
[2019-09-09] MEDS: D5W AND 1/2NSS + 20MEQ KCL 20 MEQ/1,000 ML BAG IV SCH ×2 (08:34→18:16)
[2019-09-09] MEDS: HEPARIN SOD 5,000 UNIT/0.5 ML VIAL SQ SCH ×2 (08:35→20:09)
[2019-09-09] MEDS: cefTRIAXone SODIUM 1,000 MG in DEXTROSE 5% 50 ML IV SCH (13:16)
--- NOTE | 2019-09-09 13:23 | Hospitalist Progress Note ---
Date of Service September 09, 2019 Assessment & Plan (1) Small bowel obstruction: -Abd/Pelvis CT: Findings consistent with a high-grade small bowel obstruction with transition point within the mid abdomen. Markedly dilated, fluid-filled proximal to mid small bowel with decompressed distal small bowel -s/p Laparotomy 09/06 with extensive enterolysis of adhesions -maintain NPO and NG tube per surgery -cont IVF NSS with 20meq KCl at 125 mls/hr -pain management per primary -IV Zofran/Promethazine prn for any nausea (2) Head lice: Treated with permethrin 09/06 (3) Thrombocytopenia: Resolved (4) Elevated bilirubin: Resolved (5) Hypophosphatemia: Phos 1.1 this am, replaced repeat level am Admission and Anticipated Discharge Date Admission Date: September 07, 2019 Subjective Ms Reynoso reports her pain has improved. She otherwise has no complaints. ROS Constitutional: no chills, aches, sweats or fever Respiratory: no sob,cough, sputum, or wheezing Cardiac: no chest pain, palpitations, edema, orthopnea or lightheadedness GI: no abdominal pain, nausea, vomiting, diarrhea or constipation : no dysuria or hesitancy Extremities: no joint pain or weakness Skin: no rash All other systems reviewed and negative Physical Exam Physical Exam: General: no distress Eyes: normal inspection, PERLL Respiratory: chest non tender, clear to auscultation, normal breath sounds, no respiratory distress, no accessory muscle use Cardiac: regular rate and rhythm, no rub or gallop, no murmur, no edema, no jvd GI/: active bowel sounds, no abd pain or tenderness, soft, non distended Extremities: normal range of motion, normal strength, non tender Neuro/Psych: alert and oriented x 3, normal mood and affect Skin: normal color, dry Results & Data Results & Data ([facility]) Vital Signs (Past 12 Hours) Vital Signs Temp Pulse Resp BP Pulse Ox 09/09/19 07:28 37.1 C 91 H 16 107/66 94 PG Care Time/CCT Total # of Minutes Spent Total Time Spent with Patient: Total time spent is greater than 50% in coordination of care (as documented) at patient's floor/unit and/or counseling patient: Coding Level of Care Code 90081 Subseq Hosp Care Lvl 2 Diagnoses Small bowel obstruction K56.609 Head lice B85.0 Thrombocytopenia D69.6 Elevated bilirubin R17 Hypophosphatemia E83.39
[2019-09-09] MEDS: HYDROmorphone INJ 0.5 MG/0.5 ML SYR IV PRN (15:57)
[2019-09-10] MEDS: D5W AND 1/2NSS + 20MEQ KCL 20 MEQ/1,000 ML BAG IV SCH ×3 (03:30→22:24)
[2019-09-10 05:46] LABS: Basophils # (auto) 0.02 K/uL (0-0.2); Basophils % (auto) 0.4 %; Eosinophils # (auto) 0.47 K/uL (0-0.5); Eosinophils % (auto) 10.2 %; Hematocrit (blood only) 31.9 % (37-47); Hemoglobin 10.8 g/dL (12.0-16.0); Immature Granulocytes # (auto) 0.04 K/uL (0.00-0.02); Immature Granulocytes % (auto) 0.9 %; Lymphocytes # (auto) 1.18 K/uL (1.2-3.4); Lymphocytes % (auto) 25.7 %; Mean Corpuscular Hemoglobin 29.2 pg (25-34); Mean Corpuscular Hgb Conc 33.9 g/dL (32-36); Mean Corpuscular Volume 86.2 fL (80-100); Mean Platelet Volume 9.9 fL (7.4-10.4); Monocytes # (auto) 0.25 K/uL (0.11-0.59); Monocytes % (auto) 5.4 %; Neutrophils # (auto) 2.64 K/uL (1.4-6.5); Neutrophils % (auto) 57.4 %; Platelet Count 165 K/uL (130-400); RDW Coefficient of Variation 13.6 % (11.5-14.5)
[2019-09-10 06:19] LABS: Alanine Aminotransferase 26 U/L (12-78); Albumin Level 2.3 gm/dl (3.4-5.0); Aspartate Aminotransferase 20 U/L (15-37); BUN Creatinine Ratio 11.3 (10-20); Blood Urea Nitrogen 4 mg/dl (7-18); Calcium 8.4 mg/dl (8.5-10.1); Carbon Dioxide 25 mmol/L (21-32); Chloride 109 mmol/L (98-107); Creatinine Clr Calc Pharmacy 222.5 ml/min; Est GFR (African American) > 150.0; Est GFR (Non-African American) > 150.0; Glucose 116 mg/dl (70-99); Potassium 3.8 mmol/L (3.5-5.1); Sodium 138 mmol/L (136-145)
[2019-09-10 06:21] LABS: Albumin Globulin Ratio 0.6 (0.9-2); Alkaline Phosphatase 69 U/L (45-117); Bilirubin,Total 0.3 mg/dl (0.2-1); Globulin 3.8 gm/dl (2.5-4.0); Phosphorus 1.9 mg/dl (2.5-4.9); Total Protein 6.1 gm/dl (6.4-8.2)
[2019-09-10] MEDS: HEPARIN SOD 5,000 UNIT/0.5 ML VIAL SQ SCH ×2 (07:32→20:55)
--- NOTE | 2019-09-10 08:00 | Surgery Progress Note ---
Date of Service September 10, 2019 Assessment & Plan (1) Small bowel obstruction: less bilious NG output abd softer good uo try NG clamping schedule ice only for now Results & Data Vital Signs (Past 12 Hours) Vital Signs Temp Pulse Resp BP Pulse Ox 09/10/19 07:29 36.4 C L 72 16 109/73 97 09/09/19 23:47 37.1 C 81 16 101/66 97 PG Care Time/CCT Total # of Minutes Spent Total Time Spent with Patient: Total time spent is greater than 50% in coordination of care (as documented) at patient's floor/unit and/or counseling patient: Coding Level of Care Code None Diagnoses Small bowel obstruction K56.609
[2019-09-10] MEDS: HYDROmorphone INJ 0.5 MG/0.5 ML SYR IV PRN ×2 (09:15→17:43)
[2019-09-10] MEDS: SENNOSIDES 8.8 MG/5 ML UDC PO SCH ×2 (09:16→20:54)
--- NOTE | 2019-09-10 09:28 | Hospitalist Progress Note ---
Date of Service September 10, 2019 Assessment & Plan (1) Small bowel obstruction: -Abd/Pelvis CT: Findings consistent with a high-grade small bowel obstruction with transition point within the mid abdomen. Markedly dilated, fluid-filled proximal to mid small bowel with decompressed distal small bowel -s/p Laparotomy 09/06 with extensive enterolysis of adhesions -maintain NPO and NG tube per surgery -cont IVF NSS with 20meq KCl at 125 mls/hr -pain management per surgery -IV Zofran/Promethazine prn for any nausea Repeat phosphorus (2) Head lice: Treated with permethrin 09/06 (3) Thrombocytopenia: Resolved (4) Elevated bilirubin: Resolved (5) Hypophosphatemia: Continue he is to need to be replete Admission and Anticipated Discharge Date Admission Date: September 07, 2019 Subjective Patient only has some complaints of the surgical site is not bothered by her life she is weak and tired but did get up and walk the hallways patient not passing flatus yet Review of Systems Review of Systems: Mild distress and fatigue no headache, blurry or double vision no speech or swallowing issues no chest pain, pressure or palpitations no shortness of breath, cough or wheezes Lower abdominal pain, at the surgical site, no nausea or vomiting no dysuria, hematuria or frequency no focal joint pain or swelling no back pain, CVA tenderness or radicular pain no bruising, bleeding or rashes no focal signs of weakness or numbness or altered sensation no complaints or anxiety or depression. Physical Exam Physical Exam: The patient appeared well nourished and normally developed. Vital signs as documented. Head exam is normocephalic atraumatic no scleral icterus Neck is without JVD, thyromegaly, or carotid bruits. Lungs are clear to auscultation, no focal loss of breath sounds Cardiac exam, Rhythm is regular.. No murmurs, rubs or gallops. Abdominal exam reveals hypoactive bowel sounds, soft minor tenderness Extremities are nonedematous and both pedal pulses are normal. Neurologic exam is alert and oriented, no focal loss of strength or sensation Skin is without bruises or rashes Psychologically is without concerns for anxiety or depression Results & Data Results & Data ([facility]) Vital Signs (Past 12 Hours) Vital Signs Temp Pulse Resp BP Pulse Ox 09/10/19 07:29 97.5 F L 72 16 109/73 97 09/09/19 23:47 98.8 F 81 16 101/66 97 PG Care Time/CCT Total # of Minutes Spent Total Time Spent with Patient: Total time spent is greater than 50% in coordination of care (as documented) at patient's floor/unit and/or counseling patient: Coding Level of Care Code 87778 Subseq Hosp Care Lvl 2 Diagnoses Small bowel obstruction K56.609 Head lice B85.0 Thrombocytopenia D69.6 Elevated bilirubin R17 Hypophosphatemia E83.39
[2019-09-10] MEDS ORDERED: SODIUM PHOSPHATE 3 MMOL/1 ML 5 ML VIAL IV ONE (09:34)
[2019-09-10] MEDS ORDERED: POTASSIUM PHOSPHATE 40 MMOL in SODIUM CHLORIDE 0.9% 1000ML 1,000 ML IV ONE (10:00)
[2019-09-10] MEDS ORDERED: SODIUM PHOSPHATE 40 MMOL in SODIUM CHLORIDE 0.9% 1000ML 1,000 ML IV ONE (10:00)
[2019-09-10] MEDS: cefTRIAXone SODIUM 1,000 MG in DEXTROSE 5% 50 ML IV SCH (13:12)
[2019-09-11] MEDS: HYDROmorphone INJ 1 MG/ML SYRINGE IV PRN (06:38)
[2019-09-11] MEDS ORDERED: MINERAL OIL 30 ML UDC PO ONE (07:10)
--- NOTE | 2019-09-11 07:47 | Surgery Progress Note ---
Date of Service September 11, 2019 Assessment & Plan (1) Small bowel obstruction: abd soft, some bs d/c NG later this am ice only walk in hallway ck labs Results & Data Vital Signs (Past 12 Hours) Vital Signs Temp Pulse Pulse Resp BP Pulse Ox 09/11/19 07:38 36.6 C 70 17 99/62 L 98 09/10/19 23:12 36.6 C 74 16 103/69 99 PG Care Time/CCT Total # of Minutes Spent Total Time Spent with Patient: Total time spent is greater than 50% in coordination of care (as documented) at patient's floor/unit and/or counseling patient: Coding Level of Care Code None Diagnoses Small bowel obstruction K56.609
[2019-09-11] MEDS: D5W AND 1/2NSS + 20MEQ KCL 20 MEQ/1,000 ML BAG IV SCH ×2 (08:27→19:07)
[2019-09-11] MEDS: SENNOSIDES 8.8 MG/5 ML UDC PO SCH ×3 (08:28→22:08)
[2019-09-11] MEDS: HEPARIN SOD 5,000 UNIT/0.5 ML VIAL SQ SCH ×2 (08:31→22:08)
[2019-09-11 08:56] LABS: Alanine Aminotransferase 26 U/L (12-78); Albumin Level 2.4 gm/dl (3.4-5.0); Aspartate Aminotransferase 13 U/L (15-37); BUN Creatinine Ratio 11.2 (10-20); Blood Urea Nitrogen 4 mg/dl (7-18); Calcium 8.9 mg/dl (8.5-10.1); Carbon Dioxide 23 mmol/L (21-32); Chloride 108 mmol/L (98-107); Creatinine Clr Calc Pharmacy 235.6 ml/min; Est GFR (African American) > 150.0; Est GFR (Non-African American) > 150.0; Glucose 111 mg/dl (70-99); Magnesium 2.2 mg/dl (1.8-2.4); Potassium 3.8 mmol/L (3.5-5.1); Sodium 138 mmol/L (136-145)
[2019-09-11 09:01] LABS: Albumin Globulin Ratio 0.7 (0.9-2); Alkaline Phosphatase 73 U/L (45-117); Bilirubin,Total 0.2 mg/dl (0.2-1); Globulin 3.6 gm/dl (2.5-4.0); Phosphorus 3.2 mg/dl (2.5-4.9)
[2019-09-11] MEDS: cefTRIAXone SODIUM 1,000 MG in DEXTROSE 5% 50 ML IV SCH (13:35)
--- NOTE | 2019-09-11 16:42 | Hospitalist Progress Note ---
Date of Service September 11, 2019 Assessment & Plan (1) Small bowel obstruction: -Abd/Pelvis CT: Findings consistent with a high-grade small bowel obstruction with transition point within the mid abdomen. Markedly dilated, fluid-filled proximal to mid small bowel with decompressed distal small bowel -s/p Laparotomy 09/06 with extensive enterolysis of adhesions -maintain NPO and NG tube per surgery -cont IVF NSS with 20meq KCl at 125 mls/hr -pain management per surgery -IV Zofran/Promethazine prn for any nausea Repleat phosphorus medicine will sign off but will do chart checks for electrolytes (2) Head lice: Treated with permethrin 09/06, if lice persist recommend retreatment in one week (3) Thrombocytopenia: Resolved (4) Elevated bilirubin: Resolved (5) Hypophosphatemia: Continue he is to need to be replete Admission and Anticipated Discharge Date Admission Date: September 07, 2019 Subjective this pt has improved since yesterday, she is ambulating and had her ngt pulled. she is not having her diet advanced by surgery yet Review of Systems Review of Systems: Mild distress and fatigue no headache, blurry or double vision no speech or swallowing issues no chest pain, pressure or palpitations no shortness of breath, cough or wheezes Mild generalized abdominal pain, no nausea or vomiting remains constipated no dysuria, hematuria or frequency no focal joint pain or swelling no back pain, CVA tenderness or radicular pain no bruising, bleeding or rashes no focal signs of weakness or numbness or altered sensation no complaints or anxiety or depression. Physical Exam Physical Exam: The patient appeared well nourished and normally developed. Vital signs as documented. Head exam is normocephalic atraumatic no scleral icterus Neck is without JVD, thyromegaly, or carotid bruits. Lungs are clear to auscultation, no focal loss of breath sounds Cardiac exam, Rhythm is regular.. No murmurs, rubs or gallops. Abdominal exam reveals normal bowel sounds, soft minor tenderness, no masses Extremities are nonedematous and both pedal pulses are normal. Neurologic exam is alert and oriented, no focal loss of strength or sensation Skin is without bruises or rashes Psychologically is without concerns for anxiety or depression Results & Data Results & Data ([facility]) Vital Signs (Past 12 Hours) Vital Signs Temp Pulse Pulse Resp BP BP Pulse Ox 09/11/19 15:40 98.1 F 73 16 98/63 L 96 09/11/19 07:38 97.9 F 70 17 99/62 L 98 PG Care Time/CCT Total # of Minutes Spent Total Time Spent with Patient: Total time spent is greater than 50% in coordination of care (as documented) at patient's floor/unit and/or counseling patient: Coding Level of Care Code 97568 Subseq Hosp Care Lvl 2 Diagnoses Small bowel obstruction K56.609 Head lice B85.0 Thrombocytopenia D69.6 Elevated bilirubin R17 Hypophosphatemia E83.39
[2019-09-11] MEDS: HYDROmorphone INJ 0.5 MG/0.5 ML SYR IV PRN (17:51)
[2019-09-12] MEDS: D5W AND 1/2NSS + 20MEQ KCL 20 MEQ/1,000 ML BAG IV SCH ×2 (05:38→15:44)
[2019-09-12 06:37] LABS: BUN Creatinine Ratio 13.8 (10-20); Blood Urea Nitrogen 7 mg/dl (7-18); Calcium 8.9 mg/dl (8.5-10.1); Carbon Dioxide 25 mmol/L (21-32); Chloride 107 mmol/L (98-107); Creatinine Clr Calc Pharmacy 163.5 ml/min; Est GFR (African American) > 150.0; Est GFR (Non-African American) 139.3; Glucose 107 mg/dl (70-99); Phosphorus 3.7 mg/dl (2.5-4.9); Sodium 137 mmol/L (136-145)
--- NOTE | 2019-09-12 06:44 | Surgery Progress Note ---
Date of Service September 12, 2019 Assessment & Plan (1) Small bowel obstruction: vanessa NG out ++flatus abd soft try clears cont IV Results & Data Vital Signs (Past 12 Hours) Vital Signs Temp Pulse Resp BP Pulse Ox 09/11/19 23:43 36.6 C 72 14 96/62 L 97 PG Care Time/CCT Total # of Minutes Spent Total Time Spent with Patient: Total time spent is greater than 50% in coordination of care (as documented) at patient's floor/unit and/or counseling patient: Coding Level of Care Code None Diagnoses Small bowel obstruction K56.609
[2019-09-12 09:07] LABS: Appearance Urine Clear (Clear); Bilirubin Urine Negative (Negative); Blood Urine Negative (Negative); Color Urine Yellow; Glucose Urine UA Negative (Negative); Ketones Urine Negative (Negative); Leukocyte Esterase Urine Negative (Negative); Nitrite Urine Negative (Negative); Protein Urine Negative (Negative); Specific Gravity Urine 1.011 (1.000-1.030); Urobilinogen Urine Negative (Negative); pH Urine 5.5 (4.5-7.5)
[2019-09-12] MEDS: SENNOSIDES 8.8 MG/5 ML UDC PO SCH ×2 (09:27→20:41)
[2019-09-12] MEDS: HEPARIN SOD 5,000 UNIT/0.5 ML VIAL SQ SCH ×2 (09:27→20:40)
[2019-09-12] MEDS: HYDROmorphone INJ 1 MG/ML SYRINGE IV PRN (09:33)
[2019-09-12] MEDS: OXYCODONE HCL IR 5 MG TAB (IMMEDIATE RELEASE) PO PRN (17:56)
[2019-09-13] MEDS: D5W AND 1/2NSS + 20MEQ KCL 20 MEQ/1,000 ML BAG IV SCH (02:03)
--- NOTE | 2019-09-13 07:39 | Surgery Progress Note ---
Date of Service September 13, 2019 Assessment & Plan (1) Small bowel obstruction: pt w/o acute changes will adv diet hep lock IV possible d/c 1-2 days low fiber diet Results & Data Vital Signs (Past 12 Hours) Vital Signs Temp Pulse BP Pulse Ox 09/12/19 23:39 36.8 C 65 93/57 L 96 PG Care Time/CCT Total # of Minutes Spent Total Time Spent with Patient: Total time spent is greater than 50% in coordination of care (as documented) at patient's floor/unit and/or counseling patient: Coding Level of Care Code None Diagnoses Small bowel obstruction K56.609
[2019-09-13] MEDS: HEPARIN SOD 5,000 UNIT/0.5 ML VIAL SQ SCH ×2 (08:35→21:25)
[2019-09-13] MEDS: SENNOSIDES 8.8 MG/5 ML UDC PO SCH ×2 (08:36→21:24)
[2019-09-13] MEDS: OXYCODONE HCL IR 5 MG TAB (IMMEDIATE RELEASE) PO PRN (09:46)
--- NOTE | 2019-09-14 08:16 | Surgery Progress Note ---
Date of Service September 14, 2019 Assessment & Plan (1) Small bowel obstruction: doing well incision stable vanessa diet will check d/c planning d/c every other staple prior to d/c Results & Data Vital Signs (Past 12 Hours) Vital Signs Temp Pulse Pulse Resp BP BP Pulse Ox 09/14/19 08:08 36.4 C L 65 16 92/66 L 96 09/13/19 23:39 36.8 C 73 18 94/61 L 96 PG Care Time/CCT Total # of Minutes Spent Total Time Spent with Patient: Total time spent is greater than 50% in coordination of care (as documented) at patient's floor/unit and/or counseling patient: Coding Level of Care Code None Diagnoses Small bowel obstruction K56.609
--- NOTE | 2019-09-17 14:15 | Discharge Summary (DS) ---
PRINCIPAL DIAGNOSIS: Small-bowel obstruction from adhesions. PROCEDURES: The patient underwent exploratory laparotomy with lysis of adhesions. HISTORY OF PRESENT ILLNESS: The patient is a 19-year-old female who presented to the Emergency Room with severe abdominal pain, nausea and vomiting, found to have a significant small-bowel obstruction. She had a history of prior abdominal operation for transverse colon obstruction with colectomy. HOSPITAL COURSE: On 09/07/2019, the patient was taken to the operating room where she underwent exploratory laparotomy with lysis of adhesions. The patient had extensive adhesions with a significant band in the pelvis causing a small-bowel obstruction. Postoperatively, she did have somewhat of a slow progression requiring an NG tube, but she did progress in both diet and activity, and she was felt stable for discharge on 09/14/2019 to be followed in the surgical clinic within 1-2 weeks.
== END 2019-09-14 11:21 | disposition home or self-care (01) | DRG 336 ==
LOC: ED 11:17 → ASU 16:22 → 3N 20:02 → 3E 09-08 02:50